=== PATIENT | female | born 1945 | race Caucasian/White ===

== ENCOUNTER 2017-08-04 05:55 | Outpatient (RCR) | payer MEDICARE, MEDICAID ==
[2014-09-03 16:30] VITALS: BMI 38.5
[~2017-08-04 05:55] MED LIST: ALIR75SY SQ; AMLO-101 PO; ASPI81TA94 PO; CALC667C8 PO; CALC667T3 PO; CEPH500C24 PO; COL625PT PO; DARBEPOETIN ESRD 25 MCG/ML IVP PRN; DEXTROSE 50% 50 ML SYR IVP PRN; DIALYSIS ACETAMINOPHEN 325 MG PO PRN; DRON400T4 PO; EZET10TA41 PO; FOLI0.8T30 PO; LEVO112T44 PO; LEVO75TA73 PO; LOPERAMIDE HCL 2 MG CAP PO PRN; LOR5/325 PO; OMEP-218 PO; PLAN450T3 PO; ROSU40TA18 PO; WARF-1 PO; WARF5TAB23 PO; WARF7.5T13 PO
[2017-08-04] MEDS: HEPARIN (PORCINE) 1000 UNIT/ML (DIALYSIS) IVP PRN ×2 (06:03)
[2017-08-06] MEDS: HEPARIN (PORCINE) 1000 UNIT/ML (DIALYSIS) IVP PRN ×2 (06:04)
[2017-08-06 07:36] LABS: INR 2.3
[2017-08-08] MEDS: HEPARIN (PORCINE) 1000 UNIT/ML (DIALYSIS) IVP PRN ×2 (05:59→06:00)
[2017-08-11] MEDS: HEPARIN (PORCINE) 1000 UNIT/ML (DIALYSIS) IVP PRN ×2 (05:59)
[2017-08-13] MEDS: HEPARIN (PORCINE) 1000 UNIT/ML (DIALYSIS) IVP PRN ×2 (05:55→05:56)
[2017-08-15] MEDS: HEPARIN (PORCINE) 1000 UNIT/ML (DIALYSIS) IVP PRN ×2 (06:04→06:05)
[2017-08-18] MEDS: HEPARIN (PORCINE) 1000 UNIT/ML (DIALYSIS) IVP PRN ×2 (05:49)
[2017-08-20] MEDS: HEPARIN (PORCINE) 1000 UNIT/ML (DIALYSIS) IVP PRN ×2 (05:57)
[2017-08-20 07:56] LABS: PLATELET COUNT, AUTOMATED 183 K/uL (150-450)
[2017-08-20 08:28] LABS: INR 2.48
[2017-08-22] MEDS: HEPARIN (PORCINE) 1000 UNIT/ML (DIALYSIS) IVP PRN ×2 (05:54)
[2017-08-25] MEDS: HEPARIN (PORCINE) 1000 UNIT/ML (DIALYSIS) IVP PRN ×2 (06:01)
[2017-08-27] MEDS: HEPARIN (PORCINE) 1000 UNIT/ML (DIALYSIS) IVP PRN ×2 (06:05→06:06)
[2017-08-29] MEDS: HEPARIN (PORCINE) 1000 UNIT/ML (DIALYSIS) IVP PRN ×2 (05:59)
[2017-09-01] MEDS: HEPARIN (PORCINE) 1000 UNIT/ML (DIALYSIS) IVP PRN ×2 (06:04→06:05)
[2017-09-03] MEDS: HEPARIN (PORCINE) 1000 UNIT/ML (DIALYSIS) IVP PRN ×2 (06:03)
[2017-09-03 08:58] LABS: INR 2.68
[2017-09-05] MEDS: HEPARIN (PORCINE) 1000 UNIT/ML (DIALYSIS) IVP PRN ×2 (05:54)
[2017-09-08] MEDS: HEPARIN (PORCINE) 1000 UNIT/ML (DIALYSIS) IVP PRN ×2 (06:02)
[2017-09-10] MEDS: HEPARIN (PORCINE) 1000 UNIT/ML (DIALYSIS) IVP PRN ×2 (06:11)
[2017-09-12] MEDS: HEPARIN (PORCINE) 1000 UNIT/ML (DIALYSIS) IVP PRN ×2 (05:50)
[2017-09-15] MEDS: HEPARIN (PORCINE) 1000 UNIT/ML (DIALYSIS) IVP PRN ×2 (06:04)
[2017-09-17] MEDS: HEPARIN (PORCINE) 1000 UNIT/ML (DIALYSIS) IVP PRN ×2 (06:06)
[2017-09-19] MEDS: HEPARIN (PORCINE) 1000 UNIT/ML (DIALYSIS) IVP PRN ×2 (05:52)
[2017-09-22] MEDS: HEPARIN (PORCINE) 1000 UNIT/ML (DIALYSIS) IVP PRN ×2 (05:58)
[2017-09-24] MEDS: HEPARIN (PORCINE) 1000 UNIT/ML (DIALYSIS) IVP PRN ×2 (06:04)
[2017-09-24 07:39] LABS: PLATELET COUNT, AUTOMATED 173 K/uL (150-450)
[2017-09-24 08:15] LABS: INR 2.48
[2017-09-26] MEDS: HEPARIN (PORCINE) 1000 UNIT/ML (DIALYSIS) IVP PRN ×2 (05:52)
[2017-09-26] MEDS: DARBEPOETIN ESRD 25 MCG/ML IVP PRN (06:32)
[2017-09-29] MEDS: HEPARIN (PORCINE) 1000 UNIT/ML (DIALYSIS) IVP PRN ×2 (05:50)
[2017-10-01] MEDS: HEPARIN (PORCINE) 1000 UNIT/ML (DIALYSIS) IVP PRN ×2 (05:53→05:54)
[2017-10-03] MEDS: HEPARIN (PORCINE) 1000 UNIT/ML (DIALYSIS) IVP PRN ×2 (05:48)
[2017-10-03] MEDS: DARBEPOETIN ESRD 25 MCG/ML IVP PRN (06:14)
[2017-10-06] MEDS: HEPARIN (PORCINE) 1000 UNIT/ML (DIALYSIS) IVP PRN ×2 (05:56)
[2017-10-08] MEDS: HEPARIN (PORCINE) 1000 UNIT/ML (DIALYSIS) IVP PRN ×2 (05:54)
[2017-10-08] MEDS ORDERED: CHOL10005 PO (06:19)
[2017-10-08] MEDS ORDERED: CYA1000 PO (06:19)
[2017-10-08] MEDS ORDERED: CHOL500045 PO (06:19)
[2017-10-08] MEDS: DARBEPOETIN ESRD 25 MCG/ML IVP PRN (07:05)
[2017-10-17] MEDS: HEPARIN (PORCINE) 1000 UNIT/ML (DIALYSIS) IVP PRN ×2 (05:58)
[2017-10-17] MEDS: DARBEPOETIN ESRD 25 MCG/ML IVP PRN (07:00)
[2017-10-20] MEDS: HEPARIN (PORCINE) 1000 UNIT/ML (DIALYSIS) IVP PRN ×2 (05:53)
[2017-10-22] MEDS: HEPARIN (PORCINE) 1000 UNIT/ML (DIALYSIS) IVP PRN ×2 (06:00)
[2017-10-22 06:36] LABS: PLATELET COUNT, AUTOMATED 256 K/uL (150-450)
[2017-10-24] MEDS: HEPARIN (PORCINE) 1000 UNIT/ML (DIALYSIS) IVP PRN ×2 (05:59→06:00)
[2017-10-27] MEDS: HEPARIN (PORCINE) 1000 UNIT/ML (DIALYSIS) IVP PRN ×2 (05:54)
[2017-10-29] MEDS: HEPARIN (PORCINE) 1000 UNIT/ML (DIALYSIS) IVP PRN ×2 (06:01→06:02)
[2017-10-31] MEDS: HEPARIN (PORCINE) 1000 UNIT/ML (DIALYSIS) IVP PRN ×2 (05:51)
[2017-10-31] MEDS: DARBEPOETIN ESRD 25 MCG/ML IVP PRN (06:31)
[2017-10-31 07:21] LABS: INR 1.95
[2017-11-03] MEDS: HEPARIN (PORCINE) 1000 UNIT/ML (DIALYSIS) IVP PRN ×2 (05:59)
[2017-11-05] MEDS: HEPARIN (PORCINE) 1000 UNIT/ML (DIALYSIS) IVP PRN ×2 (05:51)
[2017-11-07] MEDS: HEPARIN (PORCINE) 1000 UNIT/ML (DIALYSIS) IVP PRN ×2 (05:58)
[2017-11-10] MEDS: HEPARIN (PORCINE) 1000 UNIT/ML (DIALYSIS) IVP PRN ×2 (05:56)
[2017-11-12] MEDS: HEPARIN (PORCINE) 1000 UNIT/ML (DIALYSIS) IVP PRN ×2 (05:59)
[2017-11-12 07:50] LABS: INR 2.48
[2017-11-14] MEDS: HEPARIN (PORCINE) 1000 UNIT/ML (DIALYSIS) IVP PRN ×2 (05:52→05:53)
[2017-11-14] MEDS: DARBEPOETIN ESRD 25 MCG/ML IVP PRN (07:28)
[2017-11-17] MEDS: HEPARIN (PORCINE) 1000 UNIT/ML (DIALYSIS) IVP PRN ×2 (05:58→05:59)
[2017-11-17] MEDS: ceFAZolin(*) 2GM/D5W 50ML 50 ML IVPB SCH (09:19)
[2017-11-19] MEDS: HEPARIN (PORCINE) 1000 UNIT/ML (DIALYSIS) IVP PRN ×2 (06:05)
[2017-11-19 07:33] LABS: PLATELET COUNT, AUTOMATED 223 K/uL (150-450)
[2017-11-19 07:48] LABS: INR 2.3
[2017-11-19] MEDS: ceFAZolin(*) 2GM/D5W 50ML 50 ML IVPB SCH (09:36)
[2017-11-21] MEDS: HEPARIN (PORCINE) 1000 UNIT/ML (DIALYSIS) IVP PRN ×2 (05:49)
[2017-11-21] MEDS: ceFAZolin(*) 2GM/D5W 50ML 50 ML IVPB SCH (09:14)
[2017-11-24] MEDS: HEPARIN (PORCINE) 1000 UNIT/ML (DIALYSIS) IVP PRN ×2 (05:53)
[2017-11-26] MEDS: HEPARIN (PORCINE) 1000 UNIT/ML (DIALYSIS) IVP PRN ×2 (05:59)
[2017-11-26 07:36] LABS: INR 2.05
[2017-11-28] MEDS: HEPARIN (PORCINE) 1000 UNIT/ML (DIALYSIS) IVP PRN ×2 (05:57)
[2017-11-28] MEDS: DARBEPOETIN ESRD 25 MCG/ML IVP PRN (07:37)
[2017-12-01] MEDS: HEPARIN (PORCINE) 1000 UNIT/ML (DIALYSIS) IVP PRN ×2 (05:58→05:59)
[2017-12-03] MEDS: HEPARIN (PORCINE) 1000 UNIT/ML (DIALYSIS) IVP PRN ×2 (06:05)
[2017-12-05] MEDS: HEPARIN (PORCINE) 1000 UNIT/ML (DIALYSIS) IVP PRN ×2 (06:00→06:01)
[2017-12-08] MEDS: HEPARIN (PORCINE) 1000 UNIT/ML (DIALYSIS) IVP PRN ×2 (06:08)
[2017-12-10] MEDS: HEPARIN (PORCINE) 1000 UNIT/ML (DIALYSIS) IVP PRN ×2 (06:12→06:13)
[2017-12-10 08:18] LABS: INR 2.41
[2017-12-10 08:29] LABS: PLATELET COUNT, AUTOMATED 195 K/uL (150-450)
[2017-12-12] MEDS: HEPARIN (PORCINE) 1000 UNIT/ML (DIALYSIS) IVP PRN ×2 (06:06→06:07)
[2017-12-12] MEDS: DARBEPOETIN ESRD 25 MCG/ML IVP PRN (07:23)
[2017-12-15] MEDS: HEPARIN (PORCINE) 1000 UNIT/ML (DIALYSIS) IVP PRN ×2 (05:58)
[2017-12-17] MEDS: HEPARIN (PORCINE) 1000 UNIT/ML (DIALYSIS) IVP PRN ×2 (06:00)
[2017-12-19] MEDS: HEPARIN (PORCINE) 1000 UNIT/ML (DIALYSIS) IVP PRN ×2 (06:03)
[2017-12-22] MEDS: HEPARIN (PORCINE) 1000 UNIT/ML (DIALYSIS) IVP PRN ×2 (06:10)
[2017-12-24] MEDS: HEPARIN (PORCINE) 1000 UNIT/ML (DIALYSIS) IVP PRN ×2 (06:08→06:09)
[2017-12-24 07:50] LABS: INR 3.51
[2017-12-26] MEDS: HEPARIN (PORCINE) 1000 UNIT/ML (DIALYSIS) IVP PRN ×2 (05:59)
[2017-12-26] MEDS: DARBEPOETIN ESRD 25 MCG/ML IVP PRN (07:22)
[2017-12-29] MEDS: HEPARIN (PORCINE) 1000 UNIT/ML (DIALYSIS) IVP PRN ×2 (05:58→05:59)
[2017-12-31] MEDS: HEPARIN (PORCINE) 1000 UNIT/ML (DIALYSIS) IVP PRN ×2 (05:56)
[2018-01-02] MEDS: HEPARIN (PORCINE) 1000 UNIT/ML (DIALYSIS) IVP PRN ×2 (05:54→05:55)
[2018-01-05] MEDS: HEPARIN (PORCINE) 1000 UNIT/ML (DIALYSIS) IVP PRN ×2 (06:03→06:04)
[2018-01-07] MEDS: HEPARIN (PORCINE) 1000 UNIT/ML (DIALYSIS) IVP PRN ×2 (05:57)
[2018-01-07 07:40] LABS: INR 2.86
[2018-01-09] MEDS: HEPARIN (PORCINE) 1000 UNIT/ML (DIALYSIS) IVP PRN ×2 (05:51)
[2018-01-09] MEDS: DARBEPOETIN ESRD 25 MCG/ML IVP PRN (07:16)
[2018-01-12] MEDS: HEPARIN (PORCINE) 1000 UNIT/ML (DIALYSIS) IVP PRN ×2 (05:53)
[2018-01-14] MEDS: HEPARIN (PORCINE) 1000 UNIT/ML (DIALYSIS) IVP PRN ×2 (05:59→06:00)
[2018-01-14 06:50] LABS: PLATELET COUNT, AUTOMATED 205 K/uL (150-450)
[2018-01-14 07:58] LABS: INR 2.34
[2018-01-16] MEDS: HEPARIN (PORCINE) 1000 UNIT/ML (DIALYSIS) IVP PRN ×2 (05:57)
[2018-01-19] MEDS: HEPARIN (PORCINE) 1000 UNIT/ML (DIALYSIS) IVP PRN ×2 (05:58)
[2018-01-21] MEDS: HEPARIN (PORCINE) 1000 UNIT/ML (DIALYSIS) IVP PRN ×2 (05:58→05:59)
[2018-01-21 07:32] LABS: INR 2.59
[2018-01-23] MEDS: HEPARIN (PORCINE) 1000 UNIT/ML (DIALYSIS) IVP PRN ×2 (05:53→05:54)
[2018-01-23] MEDS: DARBEPOETIN ESRD 25 MCG/ML IVP PRN (07:49)
[2018-01-26] MEDS: HEPARIN (PORCINE) 1000 UNIT/ML (DIALYSIS) IVP PRN ×2 (05:47)
[2018-01-28] MEDS: HEPARIN (PORCINE) 1000 UNIT/ML (DIALYSIS) IVP PRN ×2 (06:00)
[2018-01-30] MEDS: HEPARIN (PORCINE) 1000 UNIT/ML (DIALYSIS) IVP PRN ×2 (06:00→06:01)
[2018-02-02] MEDS: HEPARIN (PORCINE) 1000 UNIT/ML (DIALYSIS) IVP PRN ×2 (06:02)
[2018-02-04] MEDS: HEPARIN (PORCINE) 1000 UNIT/ML (DIALYSIS) IVP PRN ×2 (06:01)
[2018-02-06] MEDS: HEPARIN (PORCINE) 1000 UNIT/ML (DIALYSIS) IVP PRN ×2 (06:00)
[2018-02-06 06:54] LABS: INR 1.61
[2018-02-06] MEDS: DARBEPOETIN ESRD 25 MCG/ML IVP PRN (09:04)
[2018-02-09] MEDS: HEPARIN (PORCINE) 1000 UNIT/ML (DIALYSIS) IVP PRN ×2 (05:52→05:53)
[2018-02-11] MEDS: HEPARIN (PORCINE) 1000 UNIT/ML (DIALYSIS) IVP PRN ×2 (06:06)
[2018-02-13] MEDS: HEPARIN (PORCINE) 1000 UNIT/ML (DIALYSIS) IVP PRN ×2 (05:58)
[2018-02-16] MEDS: HEPARIN (PORCINE) 1000 UNIT/ML (DIALYSIS) IVP PRN ×2 (05:52)
[2018-02-16 07:41] LABS: PLATELET COUNT, AUTOMATED 188 K/uL (150-450)
[2018-02-25] MEDS: HEPARIN (PORCINE) 1000 UNIT/ML (DIALYSIS) IVP PRN ×2 (05:50)
[2018-02-25 06:35] LABS: INR 2.46
[2018-02-27] MEDS: HEPARIN (PORCINE) 1000 UNIT/ML (DIALYSIS) IVP PRN ×2 (05:50)
[2018-02-27] MEDS: DARBEPOETIN ESRD 25 MCG/ML IVP PRN (07:18)
[2018-03-02] MEDS: HEPARIN (PORCINE) 1000 UNIT/ML (DIALYSIS) IVP PRN ×2 (05:56)
[2018-03-04] MEDS: HEPARIN (PORCINE) 1000 UNIT/ML (DIALYSIS) IVP PRN ×2 (05:58)
[2018-03-06] MEDS: HEPARIN (PORCINE) 1000 UNIT/ML (DIALYSIS) IVP PRN ×2 (05:55)
[2018-03-09] MEDS: HEPARIN (PORCINE) 1000 UNIT/ML (DIALYSIS) IVP PRN ×2 (06:07)
[2018-03-11] MEDS: HEPARIN (PORCINE) 1000 UNIT/ML (DIALYSIS) IVP PRN ×2 (05:48)
[2018-03-11 07:27] LABS: PLATELET COUNT, AUTOMATED 197 K/uL (150-450)
[2018-03-13] MEDS: HEPARIN (PORCINE) 1000 UNIT/ML (DIALYSIS) IVP PRN ×2 (05:45)
[2018-03-13] MEDS: DARBEPOETIN ESRD 40MCG/ML IVP PRN (06:41)
[2018-03-16] MEDS: HEPARIN (PORCINE) 1000 UNIT/ML (DIALYSIS) IVP PRN ×2 (05:48→05:49)
[2018-03-18] MEDS: HEPARIN (PORCINE) 1000 UNIT/ML (DIALYSIS) IVP PRN ×2 (05:59)
[2018-03-18 06:50] LABS: INR 2.39
[2018-03-20] MEDS: HEPARIN (PORCINE) 1000 UNIT/ML (DIALYSIS) IVP PRN ×2 (05:52)
[2018-03-23] MEDS: HEPARIN (PORCINE) 1000 UNIT/ML (DIALYSIS) IVP PRN ×2 (05:53→05:54)
[2018-03-25] MEDS: HEPARIN (PORCINE) 1000 UNIT/ML (DIALYSIS) IVP PRN ×2 (05:59→06:00)
[2018-03-27] MEDS: HEPARIN (PORCINE) 1000 UNIT/ML (DIALYSIS) IVP PRN ×2 (05:53)
[2018-03-27] MEDS: DARBEPOETIN ESRD 40MCG/ML IVP PRN (07:28)
[2018-03-30] MEDS: HEPARIN (PORCINE) 1000 UNIT/ML (DIALYSIS) IVP PRN ×2 (05:49→05:50)
[2018-04-01] MEDS: HEPARIN (PORCINE) 1000 UNIT/ML (DIALYSIS) IVP PRN ×2 (05:50)
[2018-04-01 06:38] LABS: INR 1.8
[2018-04-03] MEDS: HEPARIN (PORCINE) 1000 UNIT/ML (DIALYSIS) IVP PRN ×2 (05:51→05:52)
[2018-04-06] MEDS: HEPARIN (PORCINE) 1000 UNIT/ML (DIALYSIS) IVP PRN ×2 (05:58)
[2018-04-08] MEDS: HEPARIN (PORCINE) 1000 UNIT/ML (DIALYSIS) IVP PRN ×2 (05:51)
[2018-04-10] MEDS: HEPARIN (PORCINE) 1000 UNIT/ML (DIALYSIS) IVP PRN ×2 (05:48)
[2018-04-10] MEDS: DARBEPOETIN ESRD 25 MCG/ML IVP PRN (07:17)
[2018-04-13] MEDS: HEPARIN (PORCINE) 1000 UNIT/ML (DIALYSIS) IVP PRN ×2 (05:53→05:54)
[2018-04-15] MEDS: HEPARIN (PORCINE) 1000 UNIT/ML (DIALYSIS) IVP PRN ×2 (06:05)
[2018-04-15 07:31] LABS: INR 2.04
[2018-04-17] MEDS: HEPARIN (PORCINE) 1000 UNIT/ML (DIALYSIS) IVP PRN ×2 (05:51→05:52)
[2018-04-17] MEDS: DARBEPOETIN ESRD 25 MCG/ML IVP PRN (06:51)
[2018-04-20] MEDS: HEPARIN (PORCINE) 1000 UNIT/ML (DIALYSIS) IVP PRN ×2 (05:51)
[2018-04-22] MEDS: HEPARIN (PORCINE) 1000 UNIT/ML (DIALYSIS) IVP PRN ×2 (05:47)
[2018-04-22 06:52] LABS: PLATELET COUNT, AUTOMATED 217 K/uL (150-450)
[2018-04-24] MEDS: HEPARIN (PORCINE) 1000 UNIT/ML (DIALYSIS) IVP PRN ×2 (05:52)
[2018-04-24] MEDS: DARBEPOETIN ESRD 25 MCG/ML IVP PRN (07:15)
[2018-04-27] MEDS: HEPARIN (PORCINE) 1000 UNIT/ML (DIALYSIS) IVP PRN ×2 (05:53)
[2018-04-29] MEDS: HEPARIN (PORCINE) 1000 UNIT/ML (DIALYSIS) IVP PRN ×2 (05:53)
[2018-04-29 07:50] LABS: INR 1.33
[2018-04-29] MEDS ORDERED: INFLUENZA VIRUS VAC 0.5ML SYR IM ONLY ONE (09:00)
[2018-04-29] MEDS ORDERED: WARF7.5T26 PO (12:08)
[2018-04-29] MEDS ORDERED: WARF-1 PO (12:08)
[2018-05-01] MEDS: HEPARIN (PORCINE) 1000 UNIT/ML (DIALYSIS) IVP PRN ×2 (05:53)
[2018-05-01] MEDS: DARBEPOETIN ESRD 25 MCG/ML IVP PRN (07:27)
[2018-05-04] MEDS: HEPARIN (PORCINE) 1000 UNIT/ML (DIALYSIS) IVP PRN ×2 (05:54)
[2018-05-06] MEDS: HEPARIN (PORCINE) 1000 UNIT/ML (DIALYSIS) IVP PRN ×2 (05:54→05:55)
[2018-05-06 09:37] LABS: INR 1.89
[2018-05-08] MEDS: HEPARIN (PORCINE) 1000 UNIT/ML (DIALYSIS) IVP PRN ×2 (05:49)
[2018-05-08] MEDS: DARBEPOETIN ESRD 25 MCG/ML IVP PRN (07:16)
[2018-05-11] MEDS: HEPARIN (PORCINE) 1000 UNIT/ML (DIALYSIS) IVP PRN ×2 (05:54)
[2018-05-13] MEDS: HEPARIN (PORCINE) 1000 UNIT/ML (DIALYSIS) IVP PRN ×2 (05:55→05:56)
[2018-05-13 07:35] LABS: INR 1.86
[2018-05-15] MEDS: HEPARIN (PORCINE) 1000 UNIT/ML (DIALYSIS) IVP PRN ×2 (05:51→05:52)
[2018-05-18] MEDS: HEPARIN (PORCINE) 1000 UNIT/ML (DIALYSIS) IVP PRN ×2 (05:50)
[2018-05-20] MEDS: HEPARIN (PORCINE) 1000 UNIT/ML (DIALYSIS) IVP PRN ×2 (05:54→05:55)
[2018-05-20 06:31] LABS: INR 2.49
[2018-05-22] MEDS: HEPARIN (PORCINE) 1000 UNIT/ML (DIALYSIS) IVP PRN ×2 (05:49)
[2018-05-22] MEDS: DARBEPOETIN ESRD 25 MCG/ML IVP PRN (07:57)
[2018-05-25] MEDS: HEPARIN (PORCINE) 1000 UNIT/ML (DIALYSIS) IVP PRN ×2 (05:45)
[2018-05-27] MEDS: HEPARIN (PORCINE) 1000 UNIT/ML (DIALYSIS) IVP PRN ×2 (05:52→05:53)
[2018-05-27 07:07] LABS: PLATELET COUNT, AUTOMATED 211 K/uL (150-450)
[2018-05-29] MEDS: HEPARIN (PORCINE) 1000 UNIT/ML (DIALYSIS) IVP PRN ×2 (05:47)
[2018-06-01] MEDS: HEPARIN (PORCINE) 1000 UNIT/ML (DIALYSIS) IVP PRN ×2 (05:53)
[2018-06-03] MEDS: HEPARIN (PORCINE) 1000 UNIT/ML (DIALYSIS) IVP PRN ×2 (05:57→05:58)
[2018-06-03 06:37] LABS: INR 2.7
[2018-06-05] MEDS: HEPARIN (PORCINE) 1000 UNIT/ML (DIALYSIS) IVP PRN ×2 (05:54)
[2018-06-05] MEDS: DARBEPOETIN ESRD 25 MCG/ML IVP PRN (07:26)
[2018-06-12] MEDS: HEPARIN (PORCINE) 1000 UNIT/ML (DIALYSIS) IVP PRN ×2 (05:59)
[2018-06-12 06:40] LABS: INR 2.52
[2018-06-12] MEDS: SODIUM FERRIC GLUC 62.5 MG/5ML IVP PRN (07:21)
[2018-06-15] MEDS: HEPARIN (PORCINE) 1000 UNIT/ML (DIALYSIS) IVP PRN ×2 (05:47)
[2018-06-17] MEDS: HEPARIN (PORCINE) 1000 UNIT/ML (DIALYSIS) IVP PRN ×2 (05:42)
[2018-06-17] MEDS: SODIUM FERRIC GLUC 62.5 MG/5ML IVP PRN (07:20)
[2018-06-19] MEDS: HEPARIN (PORCINE) 1000 UNIT/ML (DIALYSIS) IVP PRN ×2 (05:50)
[2018-06-19] MEDS: DARBEPOETIN ESRD 25 MCG/ML IVP PRN (07:21)
[2018-06-22] MEDS: HEPARIN (PORCINE) 1000 UNIT/ML (DIALYSIS) IVP PRN ×2 (05:57)
[2018-06-24] MEDS: HEPARIN (PORCINE) 1000 UNIT/ML (DIALYSIS) IVP PRN ×2 (05:57→05:58)
[2018-06-24] MEDS: SODIUM FERRIC GLUC 62.5 MG/5ML IVP PRN (07:02)
[2018-06-24 07:33] LABS: PLATELET COUNT, AUTOMATED 250 K/uL (150-450)
[2018-06-24 07:50] LABS: INR 2.69
[2018-06-27] MEDS: HEPARIN (PORCINE) 1000 UNIT/ML (DIALYSIS) IVP PRN ×2 (06:33)
[2018-06-29] MEDS: HEPARIN (PORCINE) 1000 UNIT/ML (DIALYSIS) IVP PRN ×2 (05:47→05:48)
[2018-07-01] MEDS: HEPARIN (PORCINE) 1000 UNIT/ML (DIALYSIS) IVP PRN ×2 (05:50)
[2018-07-01] MEDS: SODIUM FERRIC GLUC 62.5 MG/5ML IVP PRN (07:39)
[2018-07-03] MEDS: HEPARIN (PORCINE) 1000 UNIT/ML (DIALYSIS) IVP PRN ×2 (05:54)
[2018-07-03] MEDS: DARBEPOETIN ESRD 25 MCG/ML IVP PRN (08:08)
[2018-07-06] MEDS: HEPARIN (PORCINE) 1000 UNIT/ML (DIALYSIS) IVP PRN ×2 (05:56)
[2018-07-08] MEDS: HEPARIN (PORCINE) 1000 UNIT/ML (DIALYSIS) IVP PRN ×2 (06:04)
[2018-07-08] MEDS: SODIUM FERRIC GLUC 62.5 MG/5ML IVP PRN (07:46)
[2018-07-08 08:04] LABS: PLATELET COUNT, AUTOMATED 240 K/uL (150-450)
[2018-07-08 08:17] LABS: INR 2.72
[2018-07-10] MEDS: HEPARIN (PORCINE) 1000 UNIT/ML (DIALYSIS) IVP PRN ×2 (05:45)
[2018-07-13] MEDS: HEPARIN (PORCINE) 1000 UNIT/ML (DIALYSIS) IVP PRN ×2 (05:49)
[2018-07-15] MEDS: HEPARIN (PORCINE) 1000 UNIT/ML (DIALYSIS) IVP PRN ×2 (05:45→05:46)
[2018-07-15] MEDS: SODIUM FERRIC GLUC 62.5 MG/5ML IVP PRN (06:19)
[2018-07-17] MEDS: HEPARIN (PORCINE) 1000 UNIT/ML (DIALYSIS) IVP PRN ×2 (05:45→05:46)
[2018-07-17] MEDS: DARBEPOETIN ESRD 25 MCG/ML IVP PRN (07:02)
[2018-07-20] MEDS: HEPARIN (PORCINE) 1000 UNIT/ML (DIALYSIS) IVP PRN ×2 (05:49)
[2018-07-22] MEDS: HEPARIN (PORCINE) 1000 UNIT/ML (DIALYSIS) IVP PRN ×2 (05:48)
[2018-07-22 06:55] LABS: INR 2.87
[2018-07-22] MEDS: SODIUM FERRIC GLUC 62.5 MG/5ML IVP PRN (07:02)
[2018-07-24] MEDS: HEPARIN (PORCINE) 1000 UNIT/ML (DIALYSIS) IVP PRN ×2 (05:52)
[2018-07-26] MEDS: HEPARIN (PORCINE) 1000 UNIT/ML (DIALYSIS) IVP PRN ×2 (05:51)
[2018-07-29] MEDS: HEPARIN (PORCINE) 1000 UNIT/ML (DIALYSIS) IVP PRN ×2 (05:50)
[2018-07-29] MEDS: SODIUM FERRIC GLUC 62.5 MG/5ML IVP PRN (06:24)
[2018-07-31] MEDS: HEPARIN (PORCINE) 1000 UNIT/ML (DIALYSIS) IVP PRN ×2 (05:52→05:53)
[2018-07-31] MEDS: DARBEPOETIN ESRD 25 MCG/ML IVP PRN (07:08)
[2018-08-03] MEDS: HEPARIN (PORCINE) 1000 UNIT/ML (DIALYSIS) IVP PRN ×2 (05:48)
== END 2018-08-03 18:08 | disposition home or self-care (01) ==
LOC: DIAL 05:55
PROVIDERS: ATTEND Internal Medicine Nephrology
DX: N18.6 End stage renal disease (principal); D63.1 Anemia in chronic kidney disease; N25.81 Secondary hyperparathyroidism of renal origin; E78.01 Familial hypercholesterolemia; E03.9 Hypothyroidism, unspecified; I48.2 Chronic atrial fibrillation; I35.0 Nonrheumatic aortic (valve) stenosis; Z99.2 Dependence on renal dialysis; Z79.01 Long term (current) use of anticoagulants; Z23 Encounter for immunization
CPT/HCPCS: 82040; 82108; 82247; 82248; 82306; 82310; 82374; 82465; 82565; 82728; 82947; 83540; 83550; 83718; 83970; 84075; 84100; 84132; 84155; 84295; 84443; 84450; 84460; 84478; 84520; 85018; 85025; 85610; 86580; 86706; 87340; 90999; A4657; G0008; G0472; J0882; J2916; Q2037; 86803; 90658; 90674; J0690

== ENCOUNTER → 2017-08-04 09:23 | Outpatient (RCR) | payer MEDICARE, MEDICAID ==
[2014-09-03 16:30] VITALS: Ht 147 cm; Wt 76.7 kg
[2016-08-05] MEDS: HEPARIN (PORCINE) 1000 UNIT/ML (DIALYSIS) IVP PRN ×2 (06:03→06:04)
[2016-08-07] MEDS: HEPARIN (PORCINE) 1000 UNIT/ML (DIALYSIS) IVP PRN ×2 (06:05)
[2016-08-09] MEDS: HEPARIN (PORCINE) 1000 UNIT/ML (DIALYSIS) IVP PRN ×2 (05:53)
[2016-08-12] MEDS: HEPARIN (PORCINE) 1000 UNIT/ML (DIALYSIS) IVP PRN ×2 (05:53→05:54)
[2016-08-14] MEDS: HEPARIN (PORCINE) 1000 UNIT/ML (DIALYSIS) IVP PRN ×2 (05:59)
[2016-08-14 07:44] LABS: PLATELET COUNT, AUTOMATED 184 K/uL (150-450)
[2016-08-14 07:50] LABS: INR 2.57
[2016-08-16] MEDS: HEPARIN (PORCINE) 1000 UNIT/ML (DIALYSIS) IVP PRN ×2 (05:57)
[2016-08-19] MEDS: HEPARIN (PORCINE) 1000 UNIT/ML (DIALYSIS) IVP PRN ×2 (05:57)
[2016-08-21] MEDS: HEPARIN (PORCINE) 1000 UNIT/ML (DIALYSIS) IVP PRN ×2 (05:57→05:58)
[2016-08-23] MEDS: HEPARIN (PORCINE) 1000 UNIT/ML (DIALYSIS) IVP PRN ×2 (06:00)
[2016-08-26] MEDS: HEPARIN (PORCINE) 1000 UNIT/ML (DIALYSIS) IVP PRN ×2 (06:06)
[2016-08-28] MEDS: HEPARIN (PORCINE) 1000 UNIT/ML (DIALYSIS) IVP PRN ×2 (06:11)
[2016-08-30] MEDS: HEPARIN (PORCINE) 1000 UNIT/ML (DIALYSIS) IVP PRN ×2 (06:02→06:03)
[2016-09-02] MEDS: HEPARIN (PORCINE) 1000 UNIT/ML (DIALYSIS) IVP PRN ×2 (05:58)
[2016-09-06] MEDS: HEPARIN (PORCINE) 1000 UNIT/ML (DIALYSIS) IVP PRN ×2 (05:57)
[2016-09-09] MEDS: HEPARIN (PORCINE) 1000 UNIT/ML (DIALYSIS) IVP PRN ×2 (06:08)
[2016-09-11] MEDS: HEPARIN (PORCINE) 1000 UNIT/ML (DIALYSIS) IVP PRN ×2 (05:59)
[2016-09-13] MEDS: HEPARIN (PORCINE) 1000 UNIT/ML (DIALYSIS) IVP PRN ×2 (05:51)
[2016-09-16] MEDS: HEPARIN (PORCINE) 1000 UNIT/ML (DIALYSIS) IVP PRN ×2 (05:59)
[2016-09-18] MEDS: HEPARIN (PORCINE) 1000 UNIT/ML (DIALYSIS) IVP PRN ×2 (06:25)
[2016-09-18 07:55] LABS: INR 3.39
[2016-09-18 08:29] LABS: PLATELET COUNT, AUTOMATED 190 K/uL (150-450)
[2016-09-20] MEDS: HEPARIN (PORCINE) 1000 UNIT/ML (DIALYSIS) IVP PRN ×2 (05:57)
[2016-09-23] MEDS: HEPARIN (PORCINE) 1000 UNIT/ML (DIALYSIS) IVP PRN ×2 (05:55→05:56)
[2016-09-25] MEDS: HEPARIN (PORCINE) 1000 UNIT/ML (DIALYSIS) IVP PRN ×2 (05:58)
[2016-09-27] MEDS: HEPARIN (PORCINE) 1000 UNIT/ML (DIALYSIS) IVP PRN ×2 (05:51→05:52)
[2016-09-30] MEDS: HEPARIN (PORCINE) 1000 UNIT/ML (DIALYSIS) IVP PRN ×2 (05:51)
[2016-10-02] MEDS: HEPARIN (PORCINE) 1000 UNIT/ML (DIALYSIS) IVP PRN ×2 (05:58)
[2016-10-02 07:54] LABS: INR 3.15
[2016-10-04] MEDS: HEPARIN (PORCINE) 1000 UNIT/ML (DIALYSIS) IVP PRN ×2 (05:47)
[2016-10-04] MEDS: DARBEPOETIN ESRD 25 MCG/ML IVP PRN (06:02)
[2016-10-07] MEDS: HEPARIN (PORCINE) 1000 UNIT/ML (DIALYSIS) IVP PRN ×2 (05:52→05:53)
[2016-10-09] MEDS: HEPARIN (PORCINE) 1000 UNIT/ML (DIALYSIS) IVP PRN ×2 (05:52)
[2016-10-09 07:57] LABS: INR 2.22
[2016-10-11] MEDS: HEPARIN (PORCINE) 1000 UNIT/ML (DIALYSIS) IVP PRN ×2 (06:02→06:03)
[2016-10-11] MEDS: DARBEPOETIN ESRD 25 MCG/ML IVP PRN (06:41)
[2016-10-14] MEDS: HEPARIN (PORCINE) 1000 UNIT/ML (DIALYSIS) IVP PRN ×2 (05:56→05:57)
[2016-10-16] MEDS: HEPARIN (PORCINE) 1000 UNIT/ML (DIALYSIS) IVP PRN ×2 (05:56)
[2016-10-16 06:31] LABS: PLATELET COUNT, AUTOMATED 233 K/uL (150-450)
[2016-10-16 06:39] LABS: INR 2.68
[2016-10-18] MEDS: HEPARIN (PORCINE) 1000 UNIT/ML (DIALYSIS) IVP PRN ×2 (05:56→05:57)
[2016-10-21] MEDS: HEPARIN (PORCINE) 1000 UNIT/ML (DIALYSIS) IVP PRN ×2 (05:49)
[2016-10-23] MEDS: HEPARIN (PORCINE) 1000 UNIT/ML (DIALYSIS) IVP PRN ×2 (05:56)
[2016-10-25] MEDS: HEPARIN (PORCINE) 1000 UNIT/ML (DIALYSIS) IVP PRN ×2 (05:54)
[2016-10-25] MEDS: DARBEPOETIN ESRD 25 MCG/ML IVP PRN (06:24)
[2016-10-28] MEDS: HEPARIN (PORCINE) 1000 UNIT/ML (DIALYSIS) IVP PRN ×2 (05:54→05:55)
[2016-10-30] MEDS: HEPARIN (PORCINE) 1000 UNIT/ML (DIALYSIS) IVP PRN ×2 (05:59→06:00)
[2016-10-30 08:07] LABS: INR 2.42
[2016-11-01] MEDS: HEPARIN (PORCINE) 1000 UNIT/ML (DIALYSIS) IVP PRN ×2 (05:59)
[2016-11-04] MEDS: HEPARIN (PORCINE) 1000 UNIT/ML (DIALYSIS) IVP PRN ×2 (06:11)
[2016-11-06] MEDS: HEPARIN (PORCINE) 1000 UNIT/ML (DIALYSIS) IVP PRN ×2 (05:58)
[2016-11-08] MEDS: HEPARIN (PORCINE) 1000 UNIT/ML (DIALYSIS) IVP PRN ×2 (05:55→05:56)
[2016-11-08] MEDS: DARBEPOETIN ESRD 25 MCG/ML IVP PRN (07:13)
[2016-11-11] MEDS: HEPARIN (PORCINE) 1000 UNIT/ML (DIALYSIS) IVP PRN ×2 (05:52)
[2016-11-13] MEDS: HEPARIN (PORCINE) 1000 UNIT/ML (DIALYSIS) IVP PRN ×2 (06:00)
[2016-11-13 07:23] LABS: INR 2.04
[2016-11-15] MEDS: HEPARIN (PORCINE) 1000 UNIT/ML (DIALYSIS) IVP PRN ×2 (05:51)
[2016-11-18] MEDS: HEPARIN (PORCINE) 1000 UNIT/ML (DIALYSIS) IVP PRN ×2 (05:52)
[2016-11-20] MEDS: HEPARIN (PORCINE) 1000 UNIT/ML (DIALYSIS) IVP PRN ×2 (06:08)
[2016-11-20 08:00] LABS: PLATELET COUNT, AUTOMATED 169 K/uL (150-450)
[2016-11-22] MEDS: HEPARIN (PORCINE) 1000 UNIT/ML (DIALYSIS) IVP PRN ×2 (06:00)
[2016-11-22] MEDS: DARBEPOETIN ESRD 25 MCG/ML IVP PRN (06:31)
[2016-11-25] MEDS: HEPARIN (PORCINE) 1000 UNIT/ML (DIALYSIS) IVP PRN ×2 (06:01)
[2016-11-27] MEDS: HEPARIN (PORCINE) 1000 UNIT/ML (DIALYSIS) IVP PRN ×2 (05:56)
[2016-11-27 06:55] LABS: INR 2.19
[2016-11-29] MEDS: HEPARIN (PORCINE) 1000 UNIT/ML (DIALYSIS) IVP PRN ×2 (05:54)
[2016-12-02] MEDS: HEPARIN (PORCINE) 1000 UNIT/ML (DIALYSIS) IVP PRN ×2 (05:58)
[2016-12-04] MEDS: HEPARIN (PORCINE) 1000 UNIT/ML (DIALYSIS) IVP PRN ×2 (06:05)
[2016-12-06] MEDS: HEPARIN (PORCINE) 1000 UNIT/ML (DIALYSIS) IVP PRN ×2 (05:51)
[2016-12-06] MEDS: DARBEPOETIN ESRD 25 MCG/ML IVP PRN (06:11)
[2016-12-09] MEDS: HEPARIN (PORCINE) 1000 UNIT/ML (DIALYSIS) IVP PRN ×2 (06:03)
[2016-12-11] MEDS: HEPARIN (PORCINE) 1000 UNIT/ML (DIALYSIS) IVP PRN ×2 (06:05)
[2016-12-11 07:37] LABS: INR 2.35
[2016-12-13] MEDS: HEPARIN (PORCINE) 1000 UNIT/ML (DIALYSIS) IVP PRN ×2 (05:48)
[2016-12-16] MEDS: HEPARIN (PORCINE) 1000 UNIT/ML (DIALYSIS) IVP PRN ×2 (05:55)
[2016-12-18] MEDS: HEPARIN (PORCINE) 1000 UNIT/ML (DIALYSIS) IVP PRN ×2 (05:57)
[2016-12-20] MEDS: HEPARIN (PORCINE) 1000 UNIT/ML (DIALYSIS) IVP PRN ×2 (05:46→05:47)
[2016-12-20] MEDS: DARBEPOETIN ESRD 25 MCG/ML IVP PRN (06:42)
[2016-12-23] MEDS: HEPARIN (PORCINE) 1000 UNIT/ML (DIALYSIS) IVP PRN ×2 (05:52→05:53)
[2016-12-25] MEDS: HEPARIN (PORCINE) 1000 UNIT/ML (DIALYSIS) IVP PRN ×2 (05:56)
[2016-12-25 07:20] LABS: PLATELET COUNT, AUTOMATED 216 K/uL (150-450)
[2016-12-25 08:48] LABS: INR 2.58
[2016-12-27] MEDS: HEPARIN (PORCINE) 1000 UNIT/ML (DIALYSIS) IVP PRN ×2 (05:54)
[2016-12-30] MEDS: HEPARIN (PORCINE) 1000 UNIT/ML (DIALYSIS) IVP PRN ×2 (05:50)
[2017-01-01] MEDS: HEPARIN (PORCINE) 1000 UNIT/ML (DIALYSIS) IVP PRN ×2 (06:00)
[2017-01-03] MEDS: HEPARIN (PORCINE) 1000 UNIT/ML (DIALYSIS) IVP PRN ×2 (05:51→05:52)
[2017-01-03] MEDS: DARBEPOETIN ESRD 25 MCG/ML IVP PRN (06:12)
[2017-01-06] MEDS: HEPARIN (PORCINE) 1000 UNIT/ML (DIALYSIS) IVP PRN ×2 (06:03)
[2017-01-08] MEDS: HEPARIN (PORCINE) 1000 UNIT/ML (DIALYSIS) IVP PRN ×2 (05:52)
[2017-01-10] MEDS: HEPARIN (PORCINE) 1000 UNIT/ML (DIALYSIS) IVP PRN ×2 (05:49)
[2017-01-13] MEDS: HEPARIN (PORCINE) 1000 UNIT/ML (DIALYSIS) IVP PRN ×2 (05:50)
[2017-01-15] MEDS: HEPARIN (PORCINE) 1000 UNIT/ML (DIALYSIS) IVP PRN ×2 (05:54)
[2017-01-17] MEDS: HEPARIN (PORCINE) 1000 UNIT/ML (DIALYSIS) IVP PRN ×2 (05:51)
[2017-01-17] MEDS: DARBEPOETIN ESRD 25 MCG/ML IVP PRN (06:14)
[2017-01-20] MEDS: HEPARIN (PORCINE) 1000 UNIT/ML (DIALYSIS) IVP PRN ×2 (06:00)
[2017-01-22] MEDS: HEPARIN (PORCINE) 1000 UNIT/ML (DIALYSIS) IVP PRN ×2 (05:55)
[2017-01-22 06:52] LABS: INR 2.31
[2017-01-22 06:59] LABS: PLATELET COUNT, AUTOMATED 206 K/uL (150-450)
[2017-01-24] MEDS: HEPARIN (PORCINE) 1000 UNIT/ML (DIALYSIS) IVP PRN ×2 (05:49)
[2017-01-27] MEDS: HEPARIN (PORCINE) 1000 UNIT/ML (DIALYSIS) IVP PRN ×2 (05:53)
[2017-01-29] MEDS: HEPARIN (PORCINE) 1000 UNIT/ML (DIALYSIS) IVP PRN ×2 (06:04)
[2017-01-31] MEDS: HEPARIN (PORCINE) 1000 UNIT/ML (DIALYSIS) IVP PRN ×2 (05:57)
[2017-01-31] MEDS: DARBEPOETIN ESRD 25 MCG/ML IVP PRN (07:43)
[2017-02-03] MEDS: HEPARIN (PORCINE) 1000 UNIT/ML (DIALYSIS) IVP PRN ×2 (06:13)
[2017-02-05] MEDS: HEPARIN (PORCINE) 1000 UNIT/ML (DIALYSIS) IVP PRN ×2 (05:59)
[2017-02-05 06:41] LABS: INR 1.97
[2017-02-07] MEDS: HEPARIN (PORCINE) 1000 UNIT/ML (DIALYSIS) IVP PRN ×2 (05:48)
[2017-02-10] MEDS: HEPARIN (PORCINE) 1000 UNIT/ML (DIALYSIS) IVP PRN ×2 (05:52→05:53)
[2017-02-12] MEDS: HEPARIN (PORCINE) 1000 UNIT/ML (DIALYSIS) IVP PRN ×2 (05:54)
[2017-02-14] MEDS: HEPARIN (PORCINE) 1000 UNIT/ML (DIALYSIS) IVP PRN ×2 (05:48)
[2017-02-17] MEDS: HEPARIN (PORCINE) 1000 UNIT/ML (DIALYSIS) IVP PRN ×2 (05:50)
[2017-02-19] MEDS: HEPARIN (PORCINE) 1000 UNIT/ML (DIALYSIS) IVP PRN ×2 (06:03)
[2017-02-19 06:48] LABS: PLATELET COUNT, AUTOMATED 176 K/uL (150-450)
[2017-02-19 07:00] LABS: INR 1.9
[2017-02-21] MEDS: HEPARIN (PORCINE) 1000 UNIT/ML (DIALYSIS) IVP PRN ×2 (05:51)
[2017-02-24] MEDS: HEPARIN (PORCINE) 1000 UNIT/ML (DIALYSIS) IVP PRN ×2 (06:00)
[2017-02-26] MEDS: HEPARIN (PORCINE) 1000 UNIT/ML (DIALYSIS) IVP PRN ×2 (05:57)
[2017-02-26 06:35] LABS: INR 2.57
[2017-02-28] MEDS: HEPARIN (PORCINE) 1000 UNIT/ML (DIALYSIS) IVP PRN ×2 (05:59)
[2017-03-03] MEDS: HEPARIN (PORCINE) 1000 UNIT/ML (DIALYSIS) IVP PRN ×2 (05:51→05:52)
[2017-03-05] MEDS: HEPARIN (PORCINE) 1000 UNIT/ML (DIALYSIS) IVP PRN ×2 (06:00)
[2017-03-07] MEDS: HEPARIN (PORCINE) 1000 UNIT/ML (DIALYSIS) IVP PRN ×2 (05:52)
[2017-03-10] MEDS: HEPARIN (PORCINE) 1000 UNIT/ML (DIALYSIS) IVP PRN ×2 (06:06)
[2017-03-12] MEDS: HEPARIN (PORCINE) 1000 UNIT/ML (DIALYSIS) IVP PRN ×2 (05:52→05:53)
[2017-03-12 06:19] LABS: PLATELET COUNT, AUTOMATED 183 K/uL (150-450)
[2017-03-12 06:28] LABS: INR 3.8
[2017-03-14] MEDS: HEPARIN (PORCINE) 1000 UNIT/ML (DIALYSIS) IVP PRN ×2 (05:53)
[2017-03-14 06:25] LABS: INR 3.17
[2017-03-17] MEDS: HEPARIN (PORCINE) 1000 UNIT/ML (DIALYSIS) IVP PRN ×2 (05:53)
[2017-03-19] MEDS: HEPARIN (PORCINE) 1000 UNIT/ML (DIALYSIS) IVP PRN ×2 (06:02→06:03)
[2017-03-19 07:12] LABS: INR 3.22
[2017-03-21] MEDS: HEPARIN (PORCINE) 1000 UNIT/ML (DIALYSIS) IVP PRN ×2 (05:52)
[2017-03-21 06:27] LABS: INR 3.38
[2017-03-28] MEDS: HEPARIN (PORCINE) 1000 UNIT/ML (DIALYSIS) IVP PRN ×2 (05:51)
[2017-03-28 06:36] LABS: INR 1.8
[2017-03-31] MEDS: HEPARIN (PORCINE) 1000 UNIT/ML (DIALYSIS) IVP PRN ×2 (05:52→05:53)
[2017-04-02] MEDS: HEPARIN (PORCINE) 1000 UNIT/ML (DIALYSIS) IVP PRN ×2 (05:59→06:00)
[2017-04-04] MEDS: HEPARIN (PORCINE) 1000 UNIT/ML (DIALYSIS) IVP PRN ×2 (05:50)
[2017-04-04] MEDS: DARBEPOETIN ESRD 25 MCG/ML IVP PRN (06:39)
[2017-04-07] MEDS: HEPARIN (PORCINE) 1000 UNIT/ML (DIALYSIS) IVP PRN ×2 (06:02)
[2017-04-07 06:39] LABS: INR 2.56
[2017-04-09] MEDS: HEPARIN (PORCINE) 1000 UNIT/ML (DIALYSIS) IVP PRN ×2 (06:02→06:03)
[2017-04-11] MEDS: HEPARIN (PORCINE) 1000 UNIT/ML (DIALYSIS) IVP PRN ×2 (05:56)
[2017-04-14] MEDS: HEPARIN (PORCINE) 1000 UNIT/ML (DIALYSIS) IVP PRN ×2 (05:46)
[2017-04-16] MEDS: HEPARIN (PORCINE) 1000 UNIT/ML (DIALYSIS) IVP PRN ×2 (05:48→05:49)
[2017-04-16 07:21] LABS: PLATELET COUNT, AUTOMATED 203 K/uL (150-450)
[2017-04-16 07:51] LABS: INR 2.26
[2017-04-18] MEDS: HEPARIN (PORCINE) 1000 UNIT/ML (DIALYSIS) IVP PRN ×2 (05:46→05:47)
[2017-04-18] MEDS: DARBEPOETIN ESRD 25 MCG/ML IVP PRN (06:31)
[2017-04-21] MEDS: HEPARIN (PORCINE) 1000 UNIT/ML (DIALYSIS) IVP PRN ×2 (05:52)
[2017-04-23] MEDS: HEPARIN (PORCINE) 1000 UNIT/ML (DIALYSIS) IVP PRN ×2 (06:04→06:05)
[2017-04-25] MEDS: HEPARIN (PORCINE) 1000 UNIT/ML (DIALYSIS) IVP PRN ×2 (05:51)
[2017-04-28] MEDS: HEPARIN (PORCINE) 1000 UNIT/ML (DIALYSIS) IVP PRN ×2 (05:49→05:50)
[2017-04-30] MEDS: HEPARIN (PORCINE) 1000 UNIT/ML (DIALYSIS) IVP PRN ×2 (05:59)
[2017-04-30 06:58] LABS: INR 2.46
[2017-05-02] MEDS: HEPARIN (PORCINE) 1000 UNIT/ML (DIALYSIS) IVP PRN ×2 (05:52)
[2017-05-02] MEDS: DARBEPOETIN ESRD 25 MCG/ML IVP PRN (06:38)
[2017-05-05] MEDS: HEPARIN (PORCINE) 1000 UNIT/ML (DIALYSIS) IVP PRN ×2 (05:51→05:52)
[2017-05-07] MEDS: HEPARIN (PORCINE) 1000 UNIT/ML (DIALYSIS) IVP PRN ×2 (05:50)
[2017-05-09] MEDS: HEPARIN (PORCINE) 1000 UNIT/ML (DIALYSIS) IVP PRN ×2 (05:49)
[2017-05-12] MEDS: HEPARIN (PORCINE) 1000 UNIT/ML (DIALYSIS) IVP PRN ×2 (05:49)
[2017-05-14] MEDS: HEPARIN (PORCINE) 1000 UNIT/ML (DIALYSIS) IVP PRN ×2 (05:51→05:52)
[2017-05-14 06:36] LABS: INR 1.78
[2017-05-16] MEDS: HEPARIN (PORCINE) 1000 UNIT/ML (DIALYSIS) IVP PRN ×2 (05:46→05:47)
[2017-05-16] MEDS: DARBEPOETIN ESRD 25 MCG/ML IVP PRN (06:05)
[2017-05-19] MEDS: HEPARIN (PORCINE) 1000 UNIT/ML (DIALYSIS) IVP PRN ×2 (05:46)
[2017-05-21] MEDS: HEPARIN (PORCINE) 1000 UNIT/ML (DIALYSIS) IVP PRN ×2 (05:53)
[2017-05-21 07:35] LABS: PLATELET COUNT, AUTOMATED 234 K/uL (150-450)
[2017-05-21 07:45] LABS: INR 2.54
[2017-05-23] MEDS: HEPARIN (PORCINE) 1000 UNIT/ML (DIALYSIS) IVP PRN ×2 (05:48→05:49)
[2017-05-26] MEDS: HEPARIN (PORCINE) 1000 UNIT/ML (DIALYSIS) IVP PRN ×2 (05:51→05:52)
[2017-05-28] MEDS: HEPARIN (PORCINE) 1000 UNIT/ML (DIALYSIS) IVP PRN ×2 (06:02→06:03)
[2017-05-30] MEDS: HEPARIN (PORCINE) 1000 UNIT/ML (DIALYSIS) IVP PRN ×2 (05:52)
[2017-05-30] MEDS: DARBEPOETIN ESRD 25 MCG/ML IVP PRN (07:15)
[2017-06-02] MEDS: HEPARIN (PORCINE) 1000 UNIT/ML (DIALYSIS) IVP PRN ×2 (05:52)
[2017-06-04] MEDS: HEPARIN (PORCINE) 1000 UNIT/ML (DIALYSIS) IVP PRN ×2 (06:00)
[2017-06-04 08:26] LABS: INR 2.57
[2017-06-06] MEDS: HEPARIN (PORCINE) 1000 UNIT/ML (DIALYSIS) IVP PRN ×2 (05:53)
[2017-06-09] MEDS: HEPARIN (PORCINE) 1000 UNIT/ML (DIALYSIS) IVP PRN ×2 (06:01)
[2017-06-11] MEDS: HEPARIN (PORCINE) 1000 UNIT/ML (DIALYSIS) IVP PRN ×2 (05:51)
[2017-06-13] MEDS: HEPARIN (PORCINE) 1000 UNIT/ML (DIALYSIS) IVP PRN ×2 (05:54)
[2017-06-13] MEDS: DARBEPOETIN ESRD 25 MCG/ML IVP PRN (07:20)
[2017-06-16] MEDS: HEPARIN (PORCINE) 1000 UNIT/ML (DIALYSIS) IVP PRN ×2 (05:53)
[2017-06-18] MEDS: HEPARIN (PORCINE) 1000 UNIT/ML (DIALYSIS) IVP PRN ×2 (05:59)
[2017-06-20] MEDS: HEPARIN (PORCINE) 1000 UNIT/ML (DIALYSIS) IVP PRN ×2 (05:58)
[2017-06-23] MEDS: HEPARIN (PORCINE) 1000 UNIT/ML (DIALYSIS) IVP PRN ×2 (05:48)
[2017-06-25] MEDS: HEPARIN (PORCINE) 1000 UNIT/ML (DIALYSIS) IVP PRN ×2 (05:58)
[2017-06-25 07:18] LABS: PLATELET COUNT, AUTOMATED 192 K/uL (150-450)
[2017-06-28] MEDS: HEPARIN (PORCINE) 1000 UNIT/ML (DIALYSIS) IVP PRN ×2 (05:56)
[2017-06-28] MEDS: DARBEPOETIN ESRD 25 MCG/ML IVP PRN (07:32)
[2017-06-30] MEDS: HEPARIN (PORCINE) 1000 UNIT/ML (DIALYSIS) IVP PRN ×2 (05:53)
[2017-07-02] MEDS: HEPARIN (PORCINE) 1000 UNIT/ML (DIALYSIS) IVP PRN ×2 (06:00)
[2017-07-02 06:39] LABS: INR 3.21
[2017-07-04] MEDS: HEPARIN (PORCINE) 1000 UNIT/ML (DIALYSIS) IVP PRN ×2 (05:53→05:54)
[2017-07-07] MEDS: HEPARIN (PORCINE) 1000 UNIT/ML (DIALYSIS) IVP PRN ×2 (05:59)
[2017-07-09] MEDS: HEPARIN (PORCINE) 1000 UNIT/ML (DIALYSIS) IVP PRN ×2 (05:51)
[2017-07-09 06:57] LABS: PLATELET COUNT, AUTOMATED 185 K/uL (150-450)
[2017-07-09 07:43] LABS: INR 2.9
[2017-07-11] MEDS: HEPARIN (PORCINE) 1000 UNIT/ML (DIALYSIS) IVP PRN ×2 (05:54)
[2017-07-11] MEDS: DARBEPOETIN ESRD 25 MCG/ML IVP PRN (06:27)
[2017-07-14] MEDS: HEPARIN (PORCINE) 1000 UNIT/ML (DIALYSIS) IVP PRN ×2 (05:57→05:58)
[2017-07-16] MEDS: HEPARIN (PORCINE) 1000 UNIT/ML (DIALYSIS) IVP PRN ×2 (06:06)
[2017-07-18] MEDS: HEPARIN (PORCINE) 1000 UNIT/ML (DIALYSIS) IVP PRN ×2 (06:00→06:01)
[2017-07-21] MEDS: HEPARIN (PORCINE) 1000 UNIT/ML (DIALYSIS) IVP PRN ×2 (05:56)
[2017-07-23] MEDS: HEPARIN (PORCINE) 1000 UNIT/ML (DIALYSIS) IVP PRN ×2 (06:05)
[2017-07-25] MEDS: HEPARIN (PORCINE) 1000 UNIT/ML (DIALYSIS) IVP PRN ×2 (05:52)
[2017-07-25] MEDS: DARBEPOETIN ESRD 25 MCG/ML IVP PRN (06:20)
[2017-07-27] MEDS: HEPARIN (PORCINE) 1000 UNIT/ML (DIALYSIS) IVP PRN ×2 (06:00)
[2017-07-30] MEDS: HEPARIN (PORCINE) 1000 UNIT/ML (DIALYSIS) IVP PRN ×2 (05:59→06:00)
[2017-08-01] MEDS: HEPARIN (PORCINE) 1000 UNIT/ML (DIALYSIS) IVP PRN ×2 (06:14→06:15)
[~2017-08-04] VITALS: Ht 147 cm; Wt 76.7 kg
[~2017-08-04 09:23] MED LIST changes: -DARBEPOETIN ESRD 25 MCG/ML IVP PRN; +HEPATITIS B(DIAL) VAC 20MCG/ML 1 ML VIAL IM ONLY ONE; +INFLUENZA VIRUS VAC 0.5 ML SYR IM ONLY ONE; +PROMETHAZINE HCL 25 MG TAB PO PRN; +SODIUM FERRIC GLUC 62.5 MG/5ML IVP PRN; +WARF-18 PO; -WARF5TAB23 PO; -WARF7.5T13 PO; +WARF7.5T32 PO
== END | disposition home or self-care (01) ==
LOC: DIAL 08-02 08:33
PROVIDERS: ATTEND Internal Medicine Nephrology
DX: N18.6 End stage renal disease (principal); M62.82 Rhabdomyolysis; Z79.01 Long term (current) use of anticoagulants; I48.2 Chronic atrial fibrillation; D63.1 Anemia in chronic kidney disease; I34.1 Nonrheumatic mitral (valve) prolapse; Z99.2 Dependence on renal dialysis; E03.9 Hypothyroidism, unspecified; Z79.899 Other long term (current) drug therapy; Z23 Encounter for immunization; E78.01 Familial hypercholesterolemia; N17.9 Acute kidney failure, unspecified
CPT/HCPCS: 82040; 82108; 82247; 82310; 82374; 82465; 82565; 82728; 82947; 83540; 83550; 83970; 84075; 84100; 84132; 84295; 84443; 84460; 84478; 84520; 85018; 85025; 85610; 86580; 86706; 87340; 90747; 90999; A4657; G0008; G0010; G0472; J0882; J2916; Q2037; 86803; 90658; 90674

== ENCOUNTER → 2017-09-24 | Outpatient (REF) | payer MEDICARE, MEDICAID ==
[2014-09-03 16:30] VITALS: BMI 38.5
[~2017-09-24] MED LIST changes: -DEXTROSE 50% 50 ML SYR IVP PRN; -DIALYSIS ACETAMINOPHEN 325 MG PO PRN; -HEPATITIS B(DIAL) VAC 20MCG/ML 1 ML VIAL IM ONLY ONE; -INFLUENZA VIRUS VAC 0.5 ML SYR IM ONLY ONE; -LOPERAMIDE HCL 2 MG CAP PO PRN; -PROMETHAZINE HCL 25 MG TAB PO PRN; -SODIUM FERRIC GLUC 62.5 MG/5ML IVP PRN; -WARF-18 PO; +WARF5TAB23 PO
== END ==
LOC: ZZSENDIN 07:26
PROVIDERS: ATTEND Nurse Practitioner Family
DX: E03.9 Hypothyroidism, unspecified (principal); L20.9 Atopic dermatitis, unspecified; E78.00 Pure hypercholesterolemia, unspecified; D51.0 Vitamin B12 deficiency anemia due to intrinsic factor deficiency; D50.9 Iron deficiency anemia, unspecified; E55.9 Vitamin D deficiency, unspecified; Z83.49 Family history of other endocrine, nutritional and metabolic diseases; Z95.2 Presence of prosthetic heart valve; Z79.01 Long term (current) use of anticoagulants; Z83.3 Family history of diabetes mellitus; Z99.2 Dependence on renal dialysis
CPT/HCPCS: 82306; 82465; 82607; 82728; 83090; 83718; 84443; 84478; 86140

== ENCOUNTER → 2017-10-17 | Outpatient (CLI) | payer MEDICARE, MEDICAID ==
[2014-09-03 16:30] VITALS: BMI 38.5
[~2017-10-17] MED LIST changes: +CHOL10005 PO; +CHOL500045 PO; +CYA1000 PO; +WARF7.5T13 PO; -WARF7.5T32 PO
== END ==
LOC: RESP 20:49
PROVIDERS: ATTEND Nurse Practitioner Family
DX: G47.33 Obstructive sleep apnea (adult) (pediatric) (principal); G47.61 Periodic limb movement disorder; G47.36 Sleep related hypoventilation in conditions classified elsewhere; E66.9 Obesity, unspecified

== ENCOUNTER → 2017-10-21 | Outpatient (CLI) | payer MEDICARE, MEDICAID ==
[2014-09-03 16:30] VITALS: BMI 38.5
[~2017-10-21] MED LIST changes: +IOPAMIDOL 76% 100 ML INFUS BTL 100 ML ONE; +NS 0.9% 150 ML BAG 150 ML ONE
--- NOTE | 2017-10-21 11:38 | RADIOLOGY IMAGING REPORT ---
FACILITY: [facility] [place] PATIENT NAME: Antoinette Whitney : 1945 MR: [id number] V: [id number] EXAM DATE: ORDERING PHYSICIAN: TAMAR FERGUSON TECHNOLOGIST: Location: [facility] Patient: Antoinette Whitney : 1945 Visit/Account:[id number] Date of Sevice: 10/21/2017 CTA ABDOMEN PELVIS W WO CONT Noncontrasted CT of the abdomen and pelvis HISTORY: Renal failure, evaluation for renal transplant ADDITIONAL HISTORY: None. TECHNIQUE: Initially a noncontrasted CT of the abdomen and pelvis was performed in 3 mm contiguous h elical increments. CTA abdomen and pelvis with contrast. 3D coronal slab MIPs and 2D reconstruction s in the coronal and sagittal planes were also created. One of the following dose optimization techniques was utilized in the performance of this exam: Autom ated exposure control; adjustment of the mA and/or kV according to the patient's size; or use of an i terative reconstruction technique. Specific details can be referenced in the facility's radiology C T exam operational policy. CONTRAST: 100 cc of Isovue-370 COMPARISON: CT scan 07/13/2014 FINDINGS: Vessels: The abdominal aorta is ectatic and heavily calcified. The infrarenal abdominal aorta measu res 2.1 x 2 cm maximally where it is focally ectatic. Superiorly the normal caliber of the aorta irma sures 1.3 x 1.6 cm. The celiac, SMA and DEISY are patent although moderately calcified. Single patent renal arteries are i dentified without significant narrowing. The right common iliac artery is moderately to severely calcified but patent without significant narr owing. Minimum dimension of the right common iliac artery is 8 mm. Right internal/external iliac arteries are patent and moderately calcified. Right external iliac art alessandro measures 6 mm in minimal dimension. There is a focal severe stenosis of the proximal left common iliac artery measuring approximately 70% . Dilation of the L5 lumbar arteries is noted. Distal to the stenosis, the left common iliac artery measures 9 mm maximally. Left common iliac artery is moderately calcified. The left external and internal iliac arteries are patent. Left external iliac artery is moderately c alcified with a minimum dimension of 5 mm. Common femoral arteries are patent with mild calcification on the right and minimal calcification on the left. Visualized lung bases: Small right breast nodule in the retroareolar region measures 8 mm and should be correlated with recent mammogram. Patient has aortic valve replacement. Calcified mediastinal l ymph nodes are consistent with old granulomatous disease. Calcified granulomas at the left lung base are also noted. Hepatobiliary: Negative. Spleen: Negative. Adrenals: Bilateral adrenal thickening with some nodularity has a benign appearance and may represen t a small adenoma amongst a background of hyperplasia. Pancreas: Negative. Kidneys: Negative kidneys are atrophic in keeping with history of chronic renal disease. The right kidney measures 8.9 cm in length. Left kidney measures 7 cm in length. Bowel/peritoneum/mesentery: Mild diverticulosis is noted. Lymph nodes: Negative. Pelvic : Negative Bones/body wall: Mild degenerative changes in the spine are noted. Other findings: None significant IMPRESSION: 1. Abdominal aorta is patent, heavily calcified with mild ectasia and measures 2.1 x 2 cm maximally. 2. Focal high-grade stenosis (approximately 70%) of the proximal left common iliac artery. Dilation of the L5 lumbar arteries is noted. 3. Both common iliac and external iliac arteries are moderately calcified although patent with measu rements provided above. 4. 8 mm nodule retroareolar region right breast. Recommend correlation with recent mammogram. 5. Other chronic findings are detailed above. Report Dictated By: Ye Perla MD at 10/21/2017 10:46 AM Report E-Signed By: Ye Perla MD at 10/21/2017 11:34 AM WSN:[id number]
== END ==
LOC: CT 02:21
PROVIDERS: ATTEND Internal Medicine Nephrology
DX: Z01.818 Encounter for other preprocedural examination (principal); I77.811 Abdominal aortic ectasia; I70.0 Atherosclerosis of aorta; I25.10 Atherosclerotic heart disease of native coronary artery without angina pectoris; R91.8 Other nonspecific abnormal finding of lung field; Z95.2 Presence of prosthetic heart valve; N63.10 Unspecified lump in the right breast, unspecified quadrant; K57.92 Diverticulitis of intestine, part unspecified, without perforation or abscess without bleeding
CPT/HCPCS: 74174; Q9967

== ENCOUNTER → 2017-10-30 | Outpatient (CLI) | payer MEDICARE, MEDICAID ==
[2014-09-03 16:30] VITALS: BMI 38.5
[~2017-10-30] MED LIST changes: -IOPAMIDOL 76% 100 ML INFUS BTL 100 ML ONE; -NS 0.9% 150 ML BAG 150 ML ONE
== END ==
LOC: RESP 20:42
PROVIDERS: ATTEND Nurse Practitioner Family
DX: G47.36 Sleep related hypoventilation in conditions classified elsewhere (principal); G47.33 Obstructive sleep apnea (adult) (pediatric); E66.9 Obesity, unspecified

== ENCOUNTER → 2017-11-04 | Outpatient (CLI) | payer MEDICARE, MEDICAID ==
[2014-09-03 16:30] VITALS: BMI 38.5
--- NOTE | 2017-11-04 16:24 | RADIOLOGY IMAGING REPORT ---
[facility] PATIENT NAME: PIERCE CHENG : [id number] MR: [id number] V: [id number] EXAM DATE: ORDERING PHYSICIAN: TAMAR FERGUSON TECHNOLOGIST: Michelle Amaral PROCEDURE:BILATERAL DIAGNOSTIC DIGITAL MAMMOGRAM WITH CAD ASSISTED INTERPRETATION & 3D TOMOSYNTHESIS COMPARISON:Prior mammograms 05/28/16, 04/11/15. INDICATIONS:8 MM NON CALCIFIED NODULE RT BREAST ON CT FINDINGS: Mildly heterogeneous fibroglandular tissue is seen throughout the breasts. The parenchymal pattern has remained stable allowing for difference in mammographic technique & patient positioning. There is a well circumscribed ovoid nodule in the upper outer quadrant of the Right breast which has remained stable. There is no evidence of malignant appearing mass, malignant appearing calcifications or other secondary sign of malignancy in either breast. DIAGNOSTIC CATEGORY 2--BENIGN FINDING. RECOMMENDATIONS: ROUTINE MAMMOGRAM AND CLINICAL EVALUATION. IMPRESSION: BIRADS 2: Benign finding No significant abnormality is seen. Dictated by: Marleny Black M.D. on 11/04/2017 at 9:31 Transcribed by: CHRIS on 11/04/2017 at 9:58 Approved by: Marleny Black M.D. on 11/04/2017 at 16:23 [facility]
== END ==
LOC: MAMO 02:25
PROVIDERS: ATTEND Internal Medicine Nephrology
DX: N63.11 Unspecified lump in the right breast, upper outer quadrant (principal)
CPT/HCPCS: 77062; 77066

== ENCOUNTER → 2017-12-31 | Outpatient (REF) | payer MEDICARE, MEDICAID ==
[2014-09-03 16:30] VITALS: BMI 38.5
== END ==
LOC: ZZSENDIN 07:43
PROVIDERS: ATTEND Nurse Practitioner Family
DX: E03.9 Hypothyroidism, unspecified (principal); E53.8 Deficiency of other specified B group vitamins; E55.9 Vitamin D deficiency, unspecified; N18.9 Chronic kidney disease, unspecified; Z99.2 Dependence on renal dialysis
CPT/HCPCS: 82040; 82247; 82306; 82310; 82374; 82435; 82565; 82607; 82947; 84075; 84132; 84155; 84295; 84443; 84450; 84460; 84520

== ENCOUNTER → 2018-01-23 | Outpatient (CLI) | payer MEDICARE, MEDICAID ==
[2014-09-03 16:30] VITALS: BMI 38.5
== END ==
LOC: RESP 20:48
PROVIDERS: ATTEND Nurse Practitioner Family
DX: G47.33 Obstructive sleep apnea (adult) (pediatric) (principal); G47.61 Periodic limb movement disorder; G47.36 Sleep related hypoventilation in conditions classified elsewhere

== ENCOUNTER → 2018-07-14 | Outpatient (CLI) | payer MEDICARE, MEDICAID ==
[2014-09-03 16:30] VITALS: BMI 38.5
[~2018-07-14] MED LIST changes: +WARF7.5T26 PO
--- NOTE | 2018-07-14 09:23 | RADIOLOGY IMAGING REPORT ---
FACILITY: [facility] PATIENT NAME: Antoinette Whitney : 1945 MR: [id number] V: [id number] EXAM DATE: ORDERING PHYSICIAN: NIYAH LUX TECHNOLOGIST: Location: [facility] [place] Patient: Antoinette Whitney : 1945 Visit/Account:[id number] Date of Sevice: 07/14/2018 CAROTID Provided history: Follow-up bilateral carotid stenosis Additional pertinent history: none COMPARISON STUDIES: Carotid ultrasound 06/04/17 and 06/13/16 FINDINGS: VELOCITY MEASUREMENTS: (cm/s) (Velocity criteria are extrapolated from diameter data as defined by the Society of Radiologists in U ltrasound Consensus Conference Radiology 2003; 229;340-346) Right side: Peak systolic common carotid: 116 Peak systolic internal carotid: 144 External carotid and vertebral: External carotid velocity 177. Visible hyperechoic plaque at the camron gin with estimated 50% stenosis visually. Paravertebral a very small vessel with antegrade flow. ICA/CCA ratio: 1.35 Left side: Peak systolic common carotid: 160 Peak systolic internal carotid: 154 External carotid and vertebral: No significant visible stenotic disease origin of the external caroti d. Measured maximal systolic velocity 173. Antegrade flow in the left vertebral ICA/CCA ratio: 0.96 IMAGING: Right carotid: Hyperechoic nonshadowing plaque in the common carotid and internal carotid. Visibly e vident moderate stenosis of the mid internal carotid. Moderate spectral broadening noted. Left carotid: Less extensive plaque within the right side. No visibly significant focal stenosis. O nly mild spectral broadening of the internal carotid. IMPRESSION: Moderate bilateral carotid narrowing by velocity criteria. I note a substantial variation in measure ments between these 3 examinations. This patient would benefit from a contrast enhanced CTA for furt her clarification. Report Dictated By: Dakota Lyon MD at 07/14/2018 9:09 AM Report E-Signed By: Dakota Lyon MD at 07/14/2018 9:19 AM WSN:[email or web address]
== END ==
LOC: US 00:30
PROVIDERS: ATTEND Internal Medicine Cardiovascular Disease
DX: I65.23 Occlusion and stenosis of bilateral carotid arteries (principal)
CPT/HCPCS: 93880

== ENCOUNTER 2018-08-04 00:11 | Outpatient (RCR) | payer MEDICARE, MEDICAID ==
[2014-09-03 16:30] VITALS: BMI 38.5
[~2018-08-04 00:11] MED LIST changes: +CALC667T PO; -CALC667T3 PO; +DIALYSIS ACETAMINOPHEN 325 MG PO PRN; +LOPERAMIDE HCL 2 MG CAP PO PRN; +PROMETHAZINE HCL 25 MG TAB PO PRN; +diphenhydr DIALYSIS 50 MG/ML IVP PRN
[2018-08-05] MEDS: HEPARIN (PORCINE) 1000 UNIT/ML (DIALYSIS) IVP PRN ×2 (05:46)
[2018-08-05] MEDS: SODIUM FERRIC GLUC 62.5 MG/5ML IVP PRN (07:45)
[2018-08-07] MEDS: HEPARIN (PORCINE) 1000 UNIT/ML (DIALYSIS) IVP PRN ×2 (05:47)
[2018-08-07 07:15] LABS: INR 3.22
[2018-08-10] MEDS: HEPARIN (PORCINE) 1000 UNIT/ML (DIALYSIS) IVP PRN ×2 (05:48)
[2018-08-12] MEDS: HEPARIN (PORCINE) 1000 UNIT/ML (DIALYSIS) IVP PRN ×2 (05:46)
[2018-08-12 07:11] LABS: PLATELET COUNT, AUTOMATED 239 K/uL (150-450)
[2018-08-12] MEDS: SODIUM FERRIC GLUC 62.5 MG/5ML IVP PRN (07:13)
[2018-08-12 07:35] LABS: INR 3.68
[2018-08-12] MEDS ORDERED: WARF-1 PO (08:28)
[2018-08-14] MEDS ORDERED: DARBEPOETIN ESRD 25 MCG/ML IVP PRN
[2018-08-14] MEDS: HEPARIN (PORCINE) 1000 UNIT/ML (DIALYSIS) IVP PRN ×2 (05:47→05:48)
[2018-08-17] MEDS: HEPARIN (PORCINE) 1000 UNIT/ML (DIALYSIS) IVP PRN ×2 (05:49)
[2018-08-19] MEDS: HEPARIN (PORCINE) 1000 UNIT/ML (DIALYSIS) IVP PRN ×2 (05:45)
[2018-08-19] MEDS: SODIUM FERRIC GLUC 62.5 MG/5ML IVP PRN (06:24)
[2018-08-19 07:19] LABS: INR 1.63
[2018-08-21] MEDS: HEPARIN (PORCINE) 1000 UNIT/ML (DIALYSIS) IVP PRN ×2 (05:43)
[2018-08-24] MEDS: HEPARIN (PORCINE) 1000 UNIT/ML (DIALYSIS) IVP PRN ×2 (05:46)
[2018-08-24 07:05] LABS: INR 1.98
[2018-09-07] MEDS: HEPARIN (PORCINE) 1000 UNIT/ML (DIALYSIS) IVP PRN ×2 (05:49)
[2018-09-09] MEDS: HEPARIN (PORCINE) 1000 UNIT/ML (DIALYSIS) IVP PRN ×2 (05:56)
[2018-09-09] MEDS: SODIUM FERRIC GLUC 62.5 MG/5ML IVP PRN (07:23)
[2018-09-09 07:34] LABS: INR 2.88
[2018-09-11] MEDS: HEPARIN (PORCINE) 1000 UNIT/ML (DIALYSIS) IVP PRN ×2 (05:53)
[2018-09-11] MEDS: DARBEPOETIN ESRD 25 MCG/ML IVP PRN (07:35)
[2018-09-14] MEDS: HEPARIN (PORCINE) 1000 UNIT/ML (DIALYSIS) IVP PRN ×2 (05:50)
[2018-09-16] MEDS: HEPARIN (PORCINE) 1000 UNIT/ML (DIALYSIS) IVP PRN ×2 (05:47)
[2018-09-16] MEDS: SODIUM FERRIC GLUC 62.5 MG/5ML IVP PRN (07:37)
[2018-09-16 07:51] LABS: INR 2.64
[2018-09-18] MEDS: HEPARIN (PORCINE) 1000 UNIT/ML (DIALYSIS) IVP PRN ×2 (05:49)
[2018-09-18] MEDS ORDERED: DARBEPOETIN ESRD 25 MCG/ML IVP PRN (07:00)
[2018-09-18] MEDS: DARBEPOETIN ESRD 25 MCG/ML IVP PRN (08:08)
[2018-09-21] MEDS: HEPARIN (PORCINE) 1000 UNIT/ML (DIALYSIS) IVP PRN ×2 (05:46)
[2018-09-23] MEDS: HEPARIN (PORCINE) 1000 UNIT/ML (DIALYSIS) IVP PRN ×2 (05:53)
[2018-09-23 07:42] LABS: PLATELET COUNT, AUTOMATED 238 K/uL (150-450)
[2018-09-23] MEDS: SODIUM FERRIC GLUC 62.5 MG/5ML IVP PRN (08:09)
[2018-09-25] MEDS: HEPARIN (PORCINE) 1000 UNIT/ML (DIALYSIS) IVP PRN ×2 (05:46→05:47)
[2018-09-25] MEDS: DARBEPOETIN ESRD 25 MCG/ML IVP PRN (07:51)
[2018-09-28] MEDS: HEPARIN (PORCINE) 1000 UNIT/ML (DIALYSIS) IVP PRN ×2 (05:48)
[2018-09-30] MEDS: HEPARIN (PORCINE) 1000 UNIT/ML (DIALYSIS) IVP PRN ×2 (05:49)
[2018-09-30 06:30] LABS: INR 2.22
[2018-09-30] MEDS: SODIUM FERRIC GLUC 62.5 MG/5ML IVP PRN (07:40)
[2018-10-02] MEDS: HEPARIN (PORCINE) 1000 UNIT/ML (DIALYSIS) IVP PRN ×2 (05:45)
[2018-10-02] MEDS: DARBEPOETIN ESRD 25 MCG/ML IVP PRN (07:08)
[2018-10-05] MEDS: HEPARIN (PORCINE) 1000 UNIT/ML (DIALYSIS) IVP PRN ×2 (07:57)
[2018-10-07] MEDS: HEPARIN (PORCINE) 1000 UNIT/ML (DIALYSIS) IVP PRN ×2 (05:50)
[2018-10-07] MEDS: SODIUM FERRIC GLUC 62.5 MG/5ML IVP PRN (06:55)
[2018-10-07 07:28] LABS: PLATELET COUNT, AUTOMATED 251 K/uL (150-450)
[2018-10-09] MEDS: HEPARIN (PORCINE) 1000 UNIT/ML (DIALYSIS) IVP PRN ×2 (05:46→05:47)
[2018-10-12] MEDS: HEPARIN (PORCINE) 1000 UNIT/ML (DIALYSIS) IVP PRN ×2 (05:56)
[2018-10-14] MEDS: HEPARIN (PORCINE) 1000 UNIT/ML (DIALYSIS) IVP PRN ×2 (05:46→05:47)
[2018-10-14 06:08] LABS: INR 3.2
[2018-10-14] MEDS: SODIUM FERRIC GLUC 62.5 MG/5ML IVP PRN (07:20)
[2018-10-16] MEDS: HEPARIN (PORCINE) 1000 UNIT/ML (DIALYSIS) IVP PRN ×2 (05:49)
[2018-10-19] MEDS: HEPARIN (PORCINE) 1000 UNIT/ML (DIALYSIS) IVP PRN ×2 (05:49→05:50)
[2018-10-21] MEDS: HEPARIN (PORCINE) 1000 UNIT/ML (DIALYSIS) IVP PRN ×2 (13:49)
[2018-10-21 14:33] LABS: INR 3.07
[2018-10-21] MEDS: SODIUM FERRIC GLUC 62.5 MG/5ML IVP PRN (14:49)
[2018-10-23] MEDS: HEPARIN (PORCINE) 1000 UNIT/ML (DIALYSIS) IVP PRN ×2 (05:46)
[2018-10-26] MEDS: HEPARIN (PORCINE) 1000 UNIT/ML (DIALYSIS) IVP PRN ×2 (06:04)
[2018-10-28] MEDS: HEPARIN (PORCINE) 1000 UNIT/ML (DIALYSIS) IVP PRN ×2 (05:48→05:49)
[2018-10-28 06:30] LABS: INR 2.24
[2018-10-28] MEDS: SODIUM FERRIC GLUC 62.5 MG/5ML IVP PRN (07:03)
[2018-10-30] MEDS: HEPARIN (PORCINE) 1000 UNIT/ML (DIALYSIS) IVP PRN ×2 (05:54→05:55)
[2018-11-02] MEDS: HEPARIN (PORCINE) 1000 UNIT/ML (DIALYSIS) IVP PRN ×2 (05:53)
[2018-11-04] MEDS: HEPARIN (PORCINE) 1000 UNIT/ML (DIALYSIS) IVP PRN ×2 (05:55)
[2018-11-04] MEDS: SODIUM FERRIC GLUC 62.5 MG/5ML IVP PRN (08:41)
[2018-11-06] MEDS: HEPARIN (PORCINE) 1000 UNIT/ML (DIALYSIS) IVP PRN ×2 (05:45→05:46)
[2018-11-06] MEDS: DARBEPOETIN ESRD 25 MCG/ML IVP PRN (06:21)
[2018-11-09] MEDS: HEPARIN (PORCINE) 1000 UNIT/ML (DIALYSIS) IVP PRN ×2 (05:50)
[2018-11-11] MEDS: HEPARIN (PORCINE) 1000 UNIT/ML (DIALYSIS) IVP PRN (05:49)
[2018-11-11] MEDS: SODIUM FERRIC GLUC 62.5 MG/5ML IVP PRN (06:18)
[2018-11-11 07:43] LABS: INR 2.44
[2018-11-13] MEDS: HEPARIN (PORCINE) 1000 UNIT/ML (DIALYSIS) IVP PRN ×2 (06:14)
[2018-11-16] MEDS: HEPARIN (PORCINE) 1000 UNIT/ML (DIALYSIS) IVP PRN ×2 (05:51→05:52)
[2018-11-18] MEDS: HEPARIN (PORCINE) 1000 UNIT/ML (DIALYSIS) IVP PRN ×2 (06:00)
[2018-11-18] MEDS: SODIUM FERRIC GLUC 62.5 MG/5ML IVP PRN (07:32)
[2018-11-18 07:33] LABS: PLATELET COUNT, AUTOMATED 173 K/uL (150-450)
[2018-11-20] MEDS: HEPARIN (PORCINE) 1000 UNIT/ML (DIALYSIS) IVP PRN ×2 (05:50)
[2018-11-20] MEDS: DARBEPOETIN ESRD 25 MCG/ML IVP PRN (06:24)
[2018-11-23] MEDS: HEPARIN (PORCINE) 1000 UNIT/ML (DIALYSIS) IVP PRN ×2 (05:52)
[2018-11-25] MEDS: HEPARIN (PORCINE) 1000 UNIT/ML (DIALYSIS) IVP PRN ×2 (05:53)
[2018-11-25] MEDS: SODIUM FERRIC GLUC 62.5 MG/5ML IVP PRN (07:20)
[2018-11-25 07:48] LABS: INR 2.43
[2018-11-27] MEDS: HEPARIN (PORCINE) 1000 UNIT/ML (DIALYSIS) IVP PRN ×2 (05:52→05:53)
[2018-11-30] MEDS: HEPARIN (PORCINE) 1000 UNIT/ML (DIALYSIS) IVP PRN ×2 (05:47)
[2018-12-02] MEDS: HEPARIN (PORCINE) 1000 UNIT/ML (DIALYSIS) IVP PRN ×2 (05:49)
[2018-12-02] MEDS: SODIUM FERRIC GLUC 62.5 MG/5ML IVP PRN (07:13)
[2018-12-04] MEDS: HEPARIN (PORCINE) 1000 UNIT/ML (DIALYSIS) IVP PRN ×2 (05:51→05:52)
[2018-12-07] MEDS: HEPARIN (PORCINE) 1000 UNIT/ML (DIALYSIS) IVP PRN ×2 (05:47→05:48)
[2018-12-09] MEDS: HEPARIN (PORCINE) 1000 UNIT/ML (DIALYSIS) IVP PRN ×2 (05:59)
[2018-12-09] MEDS: SODIUM FERRIC GLUC 62.5 MG/5ML IVP PRN (07:10)
[2018-12-09 07:49] LABS: INR 2.15
[2018-12-11] MEDS: HEPARIN (PORCINE) 1000 UNIT/ML (DIALYSIS) IVP PRN ×2 (05:48)
[2018-12-14] MEDS: HEPARIN (PORCINE) 1000 UNIT/ML (DIALYSIS) IVP PRN ×2 (05:47)
[2018-12-16] MEDS: HEPARIN (PORCINE) 1000 UNIT/ML (DIALYSIS) IVP PRN ×2 (05:45)
[2018-12-16] MEDS: SODIUM FERRIC GLUC 62.5 MG/5ML IVP PRN (06:48)
[2018-12-16 07:27] LABS: PLATELET COUNT, AUTOMATED 196 K/uL (150-450)
[2018-12-18] MEDS: HEPARIN (PORCINE) 1000 UNIT/ML (DIALYSIS) IVP PRN ×2 (05:50)
[2018-12-21] MEDS: HEPARIN (PORCINE) 1000 UNIT/ML (DIALYSIS) IVP PRN ×2 (05:47)
[2018-12-23] MEDS: HEPARIN (PORCINE) 1000 UNIT/ML (DIALYSIS) IVP PRN ×2 (05:49)
[2018-12-23 06:33] LABS: INR 1.97
[2018-12-23] MEDS: SODIUM FERRIC GLUC 62.5 MG/5ML IVP PRN (07:01)
[2018-12-25] MEDS: HEPARIN (PORCINE) 1000 UNIT/ML (DIALYSIS) IVP PRN ×2 (05:48)
[2018-12-28] MEDS: HEPARIN (PORCINE) 1000 UNIT/ML (DIALYSIS) IVP PRN ×2 (05:57)
[2018-12-30] MEDS: HEPARIN (PORCINE) 1000 UNIT/ML (DIALYSIS) IVP PRN ×2 (05:44)
[2018-12-30] MEDS: SODIUM FERRIC GLUC 62.5 MG/5ML IVP PRN (07:12)
[2019-01-01] MEDS: HEPARIN (PORCINE) 1000 UNIT/ML (DIALYSIS) IVP PRN ×2 (05:59)
[2019-01-04] MEDS: HEPARIN (PORCINE) 1000 UNIT/ML (DIALYSIS) IVP PRN ×2 (05:50)
[2019-01-06] MEDS: HEPARIN (PORCINE) 1000 UNIT/ML (DIALYSIS) IVP PRN ×2 (05:54)
[2019-01-06 07:21] LABS: PLATELET COUNT, AUTOMATED 191 K/uL (150-450)
[2019-01-06 07:27] LABS: INR 1.95
[2019-01-06] MEDS: SODIUM FERRIC GLUC 62.5 MG/5ML IVP PRN (07:46)
[2019-01-08] MEDS: HEPARIN (PORCINE) 1000 UNIT/ML (DIALYSIS) IVP PRN ×2 (05:52)
[2019-01-08] MEDS: DARBEPOETIN ESRD 25 MCG/ML IVP PRN (07:15)
[2019-01-11] MEDS: HEPARIN (PORCINE) 1000 UNIT/ML (DIALYSIS) IVP PRN ×2 (05:52)
[2019-01-13] MEDS: HEPARIN (PORCINE) 1000 UNIT/ML (DIALYSIS) IVP PRN ×2 (05:44)
[2019-01-13] MEDS: SODIUM FERRIC GLUC 62.5 MG/5ML IVP PRN (06:42)
[2019-01-15] MEDS: HEPARIN (PORCINE) 1000 UNIT/ML (DIALYSIS) IVP PRN ×2 (05:53)
[2019-01-18] MEDS: HEPARIN (PORCINE) 1000 UNIT/ML (DIALYSIS) IVP PRN ×2 (05:44)
[2019-01-20] MEDS: HEPARIN (PORCINE) 1000 UNIT/ML (DIALYSIS) IVP PRN ×2 (05:42)
[2019-01-20] MEDS: SODIUM FERRIC GLUC 62.5 MG/5ML IVP PRN (07:18)
[2019-01-20 07:31] LABS: INR 1.55
[2019-01-22] MEDS: HEPARIN (PORCINE) 1000 UNIT/ML (DIALYSIS) IVP PRN ×2 (05:51)
[2019-01-22] MEDS: DARBEPOETIN ESRD 25 MCG/ML IVP PRN (07:55)
[2019-01-25] MEDS: HEPARIN (PORCINE) 1000 UNIT/ML (DIALYSIS) IVP PRN ×2 (05:50)
[2019-01-27] MEDS: HEPARIN (PORCINE) 1000 UNIT/ML (DIALYSIS) IVP PRN ×2 (05:45)
[2019-01-27] MEDS: SODIUM FERRIC GLUC 62.5 MG/5ML IVP PRN (07:18)
[2019-01-27 07:31] LABS: INR 1.74
[2019-01-29] MEDS: HEPARIN (PORCINE) 1000 UNIT/ML (DIALYSIS) IVP PRN ×2 (05:41)
[2019-02-01] MEDS: HEPARIN (PORCINE) 1000 UNIT/ML (DIALYSIS) IVP PRN ×2 (05:50)
[2019-02-03] MEDS: HEPARIN (PORCINE) 1000 UNIT/ML (DIALYSIS) IVP PRN ×2 (05:47)
[2019-02-03] MEDS: SODIUM FERRIC GLUC 62.5 MG/5ML IVP PRN (06:52)
[2019-02-03 07:47] LABS: INR 2.25
[2019-02-05] MEDS: HEPARIN (PORCINE) 1000 UNIT/ML (DIALYSIS) IVP PRN ×2 (05:50)
[2019-02-05] MEDS: DARBEPOETIN ESRD 25 MCG/ML IVP PRN (07:04)
[2019-02-08] MEDS: HEPARIN (PORCINE) 1000 UNIT/ML (DIALYSIS) IVP PRN ×2 (05:57)
[2019-02-12] MEDS: HEPARIN (PORCINE) 1000 UNIT/ML (DIALYSIS) IVP PRN ×2 (05:52)
[2019-02-15] MEDS: HEPARIN (PORCINE) 1000 UNIT/ML (DIALYSIS) IVP PRN ×2 (05:51)
[2019-02-19] MEDS: HEPARIN (PORCINE) 1000 UNIT/ML (DIALYSIS) IVP PRN ×2 (05:49)
[2019-02-19] MEDS: SODIUM FERRIC GLUC 62.5 MG/5ML IVP PRN (06:44)
[2019-02-19] MEDS: DARBEPOETIN ESRD 25 MCG/ML IVP PRN (06:44)
[2019-02-19 06:51] LABS: INR 2.31
[2019-02-22] MEDS: HEPARIN (PORCINE) 1000 UNIT/ML (DIALYSIS) IVP PRN ×2 (05:54)
[2019-02-24] MEDS: HEPARIN (PORCINE) 1000 UNIT/ML (DIALYSIS) IVP PRN ×2 (05:47)
[2019-02-24] MEDS: SODIUM FERRIC GLUC 62.5 MG/5ML IVP PRN (07:30)
[2019-02-24 13:45] LABS: PLATELET COUNT, AUTOMATED 240 K/uL (150-450)
[2019-02-26] MEDS: HEPARIN (PORCINE) 1000 UNIT/ML (DIALYSIS) IVP PRN ×2 (06:01)
[2019-03-01] MEDS: HEPARIN (PORCINE) 1000 UNIT/ML (DIALYSIS) IVP PRN ×2 (05:49→05:50)
[2019-03-03] MEDS: HEPARIN (PORCINE) 1000 UNIT/ML (DIALYSIS) IVP PRN ×2 (05:51)
[2019-03-03] MEDS: SODIUM FERRIC GLUC 62.5 MG/5ML IVP PRN (06:44)
[2019-03-03 07:15] LABS: INR 2.43
[2019-03-05] MEDS: HEPARIN (PORCINE) 1000 UNIT/ML (DIALYSIS) IVP PRN ×2 (05:47)
[2019-03-05] MEDS: DARBEPOETIN ESRD 25 MCG/ML IVP PRN (06:07)
[2019-03-08] MEDS: HEPARIN (PORCINE) 1000 UNIT/ML (DIALYSIS) IVP PRN ×2 (06:02)
[2019-03-10] MEDS: HEPARIN (PORCINE) 1000 UNIT/ML (DIALYSIS) IVP PRN ×2 (05:56)
[2019-03-10] MEDS: SODIUM FERRIC GLUC 62.5 MG/5ML IVP PRN (08:13)
[2019-03-12] MEDS: HEPARIN (PORCINE) 1000 UNIT/ML (DIALYSIS) IVP PRN ×2 (05:56)
[2019-03-15] MEDS: HEPARIN (PORCINE) 1000 UNIT/ML (DIALYSIS) IVP PRN ×2 (05:49)
[2019-03-19] MEDS: HEPARIN (PORCINE) 1000 UNIT/ML (DIALYSIS) IVP PRN ×2 (05:53)
[2019-03-19 06:25] LABS: PLATELET COUNT, AUTOMATED 171 K/uL (150-450)
[2019-03-19 06:45] LABS: INR 2.62
[2019-03-19] MEDS: SODIUM FERRIC GLUC 62.5 MG/5ML IVP PRN (07:36)
[2019-03-19] MEDS: DARBEPOETIN ESRD 25 MCG/ML IVP PRN (07:36)
[2019-03-22] MEDS: HEPARIN (PORCINE) 1000 UNIT/ML (DIALYSIS) IVP PRN ×2 (05:45→05:46)
[2019-03-24] MEDS: HEPARIN (PORCINE) 1000 UNIT/ML (DIALYSIS) IVP PRN ×2 (05:48)
[2019-03-24] MEDS: SODIUM FERRIC GLUC 62.5 MG/5ML IVP PRN (07:10)
[2019-03-26] MEDS: HEPARIN (PORCINE) 1000 UNIT/ML (DIALYSIS) IVP PRN ×2 (05:48→05:49)
== END 2019-04-03 ==
LOC: DIAL 00:11
PROVIDERS: ATTEND Internal Medicine Nephrology
DX: N18.6 End stage renal disease (principal); N17.9 Acute kidney failure, unspecified; D63.1 Anemia in chronic kidney disease; I35.0 Nonrheumatic aortic (valve) stenosis; Z95.2 Presence of prosthetic heart valve; I48.91 Unspecified atrial fibrillation; Z79.01 Long term (current) use of anticoagulants; Z99.2 Dependence on renal dialysis; E03.9 Hypothyroidism, unspecified; E78.01 Familial hypercholesterolemia
CPT/HCPCS: 82040; 82108; 82247; 82310; 82374; 82465; 82565; 82728; 82947; 83036; 83540; 83550; 83970; 84075; 84100; 84132; 84295; 84443; 84460; 84478; 84520; 85018; 85025; 85610; 86580; 86705; 87340; 90999; A4657; G0472; J0882; J2916; 86803

== ENCOUNTER → 2018-11-24 | Outpatient (CLI) | payer MEDICARE, MEDICAID ==
[2014-09-03 16:30] VITALS: BMI 38.5
[~2018-11-24] MED LIST changes: -CALC667T PO; +CALC667T3 PO; -DIALYSIS ACETAMINOPHEN 325 MG PO PRN; +IOPAMIDOL 76% 150 ML INFUS BTL 150 ML ONE; -LOPERAMIDE HCL 2 MG CAP PO PRN; +NS(*) 0.9% 50 ML BAG 50 ML ONE; -PROMETHAZINE HCL 25 MG TAB PO PRN; -diphenhydr DIALYSIS 50 MG/ML IVP PRN
--- NOTE | 2018-11-24 14:51 | RADIOLOGY IMAGING REPORT ---
FACILITY: [facility] [place] PATIENT NAME: Antoinette Whitney : 1945 MR: [id number] V: [id number] EXAM DATE: ORDERING PHYSICIAN: NIYAH LUX TECHNOLOGIST: Location: [facility] Patient: Antoinette Whitney : 1945 Visit/Account:[id number] Date of Sevice: 11/24/2018 EXAMINATION: CT Angiogram of the Neck with IV contrast HISTORY: Carotid stenosis TECHNIQUE: Contrast enhanced CT neck angiogram was performed following the injection of 75 mL IV is ovue 370. Sagittal and coronal MIP reformations were generated. Stenosis of the internal carotid art eries are calculated using NASCET criteria. One of the following dose optimization techniques was utilized in the performance of this exam: autom ated exposure control; adjustment of the mA and/or kV according to patient size; or use of iterative reconstruction technique. Specific details can be referenced in the facility's radiology CT exam ope rational policy. COMPARISON: Carotid ultrasound 07/14/2018 FINDINGS: Aortic arch and great vessels: Extensive calcified plaque. Calcified plaque in the proximal left s ubclavian artery results in approximate 50% stenosis. Right carotid vasculature: Calcified plaque in the common carotid artery, bulb and proximal internal carotid artery results in no stenosis. Retropharyngeal positioning of the mid internal carotid arter y, otherwise normal. Left carotid vasculature: Calcified plaque in the common carotid, bulb and proximal internal caroti d artery results in no stenosis. Tortuous mid internal carotid artery, otherwise unremarkable. Vertebral arteries: Focal ectasia of the left vertebral artery at the C1 level, coronal image 85. Congenitally diminutive right vertebral artery most pronounced at the C1 level. The intracranial rig ht vertebral artery is either congenitally absent or chronically occluded. Focally ectatic left vertebral artery at the C2 level. Visualized intracranial vasculature: Normal. Neck soft tissues: Absent or atrophic thyroid gland. Upper chest: Normal. Osseous structures: Partially fused C3-4 disc space. Fused bilateral C3-4 facet joints. IMPRESSION: 1. Bilateral carotid calcified atherosclerotic plaque results in no significant stenosis. 2. 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 3. Focally ectatic left vertebral artery at the C1 and C2 levels may represent atherosclerotic ectas ia or FMD. 4. 50% proximal left subclavian artery stenosis. 5. Otherwise unremarkable neck CT angiogram. Report Dictated By: Abram Leija MD at 11/24/2018 2:25 PM Report E-Signed By: Abram Leija MD at 11/24/2018 2:39 PM WSN:[id number]
== END ==
LOC: US 01:21
PROVIDERS: ATTEND Internal Medicine Cardiovascular Disease
DX: I65.23 Occlusion and stenosis of bilateral carotid arteries (principal); Z95.2 Presence of prosthetic heart valve; I51.7 Cardiomegaly
CPT/HCPCS: 70498; 93306; J7050; Q9967

== ENCOUNTER → 2018-12-01 | Outpatient (CLI) | payer MEDICARE, MEDICAID ==
[2014-09-03 16:30] VITALS: BMI 38.5
[~2018-12-01] MED LIST changes: -IOPAMIDOL 76% 150 ML INFUS BTL 150 ML ONE; -NS(*) 0.9% 50 ML BAG 50 ML ONE
--- NOTE | 2018-12-01 08:58 | EKG ---
FACILITY: PATIENT NAME: PIERCE CHENG : [id number] MR: [id number] V: [id number] EXAM DATE: ORDERING PHYSICIAN: KIMBERLY SANTIAGO TECHNOLOGIST: LILIANA Hagan Reason : DIZZY Blood Pressure : / mmHG Vent. Rate : 053 BPM Atrial Rate : 053 BPM P-R Int : 192 ms QRS Dur : 088 ms QT Int : 480 ms P-R-T Axes : 061 041 061 degrees QTc Int : 450 ms Sinus bradycardia Otherwise normal ECG When compared with ECG of 17-OCT-2016 09:43, No significant change was found Confirmed by DORY GARCIA ([id number]) on 12/01/2018 9:29:38 AM Referred By: PAMELA Confirmed By:DORY GARCIA
== END ==
LOC: RESP 08:48
PROVIDERS: ATTEND Nurse Practitioner Family
DX: R00.1 Bradycardia, unspecified (principal)
CPT/HCPCS: 93005